=== PATIENT | male | born 1945 | race Caucasian/White ===

== ENCOUNTER 2016-09-23 21:05 | Emergency (ER) | payer MEDICARE, BC ==
[2016-09-23 21:22] VITALS: BP 140/76; PULSE 77; RESP 18; TEMP 97.9
[2016-09-23] MEDS ORDERED: methylPREDNISolone SOD SUCCI 125 MG/2 ML VIAL IM STA (21:43)
[2016-09-23] MEDS ORDERED: diphenhydrAMINE 50 MG CAP PO STA (21:43)
[2016-09-23] MEDS ORDERED: FAMOTIDINE 20 MG TAB PO STA (21:43)
--- NOTE | 2016-09-23 21:47 | ED ---
Eye Problem HPI - General Chief complaint: Eye Problems Stated complaint: Eye Problem Time Seen by Provider: 09/23/16 21:40 Source: patient, RN notes reviewed Mode of arrival: ambulatory Limitations: no limitations - History of Present Illness Initial comments: 71-year-old male presents to the emergency Department chief complaint of localized reaction. Patient states he was fogging his upstairs and he got he missed onto his face and since he's noted some swelling to the face and he's noticed some itchiness. Patient states he called [facility] referred him here for ALLERGIC reaction. Patient states is been no difficulty in breathing. Patient denies any shortness of breath. Patient denies any fever or chills with this. Patient states he was concerned due to the itchiness and redness without that he should be evaluated. Patient is denying any other symptoms at this time. - Related Data Home Medications Medication Instructions Recorded Confirmed Dapsone 25 mg PO DAILY 12/23/14 12/23/14 HYDROcodone/APAP 7.5-325MG [[place] 1 each PO Q6HR PRN 12/23/14 12/23/14 7.5-325] Levothyroxine Sodium [Synthroid] 112 mcg PO DAILY 12/23/14 12/23/14 Nitroglycerin Sl Tabs [Nitrostat] 0 mg SUBLINGUAL DIRECTED PRN 12/23/1412/23 Omeprazole [PriLOSEC] 20 mg PO AC-BRKFST 12/23/14 12/23/14 Zolpidem Tartrate [Ambien] 10 mg PO HS 12/23/14 12/23/14 Previous Rx's Medication Instructions Recorded Famotidine [Pepcid] 20 mg PO BID #10 tablet 09/23/16 diphenhydrAMINE [Benadryl] 50 mg PO HS PRN #5 capsule 09/23/16 predniSONE 50 mg PO DAILY #5 tab 09/23/16 Allergies Allergy/AdvReac Type Severity Reaction Status Date / Time gluten Allergy Unknown Verified 09/23/16 21:23 Review of Systems ROS Statement: Those systems with pertinent positive or pertinent negative responses have been documented in the HPI. ROS Other: All systems not noted in ROS Statement are negative. Past Medical History Past Medical History: Chest Pain / Angina, Thyroid Disorder Additional Past Medical History / Comment(s): Insomnia History of Any Multi-Drug Resistant Organisms: None Reported Past Surgical History: Orthopedic Surgery Past Psychological History: No Psychological Hx Reported Smoking Status: Never smoker Past Alcohol Use History: Occasional Past Drug Use History: None Reported General Exam Limitations: no limitations General appearance: alert, in no apparent distress Head exam: Present: atraumatic, normocephalic. Absent: normal inspection ( Patient is bit of swelling around the eyes to the face to the forehead minimal erythema no hives) Eye exam: Present: PERRL, EOMI. Absent: normal appearance (Some swelling), scleral icterus, conjunctival injection, periorbital swelling ENT exam: Present: normal exam, mucous membranes moist Respiratory exam: Present: normal lung sounds bilaterally. Absent: respiratory distress, wheezes, rales, rhonchi, stridor Cardiovascular Exam: Present: regular rate, normal rhythm, normal heart sounds. Absent: systolic murmur, diastolic murmur, rubs, gallop, clicks Neurological exam: Present: alert, oriented X3 Psychiatric exam: Present: normal affect, normal mood Skin exam: Present: warm, dry, intact, normal color. Absent: rash Course Vital Signs 09/23/16 21:18 Temperature 97.9 F Pulse Rate 77 Respiratory 18 Rate Blood Pressure 140/76 O2 Sat by Pulse 94 L Oximetry Medical Decision Making - Medical Decision Making 71 yo male presents for what appears to be ALLERGIC reaction. This time we'll start patient on steroids for home. We discussed Motrin Tylenol for pain. We discussed continuing the prescription that was prescribed. We discussed return parameters all patient's questions. He stated he understood the plan. This time will be discharged home. Disposition Clinical Impression: Allergic reaction to chemical substance Disposition: HOME SELF-CARE Condition: Stable Instructions: Allergies (ED) Additional Instructions: Please use medication as discussed. Please follow up with family doctor if symptoms have not improved over the next two days. Please return to the emergency room if your symptoms increase or worsen or for any other concerns. Prescriptions: diphenhydrAMINE [Benadryl] 50 mg PO HS PRN #5 capsule PRN Reason: Itching Famotidine [Pepcid] 20 mg PO BID #10 tablet predniSONE 50 mg PO DAILY #5 tab Referrals: Eladio Pagan DO [Primary Care Provider] - 1-2 days Time of Disposition: 22:13
== END 2016-09-23 22:18 | disposition home or self-care (01) ==
LOC: EC 21:05
DX: T78.49XA Other allergy, initial encounter (principal); E07.9 Disorder of thyroid, unspecified; Z79.899 Other long term (current) drug therapy; Z91.018 Allergy to other foods
CPT/HCPCS: 99283; 96372; J2930

== ENCOUNTER 2019-04-13 17:22 | Emergency (ER) | payer MEDICARE, BC ==
[2019-04-13 17:41] VITALS: TEMP 98.1
--- NOTE | 2019-04-13 20:03 | ED ---
General Adult HPI - General Chief complaint: Extremity Injury, Lower Stated complaint: Knee injury Time Seen by Provider: 04/13/19 17:56 Source: patient Mode of arrival: ambulatory Limitations: no limitations - History of Present Illness Initial comments: Patient is a 73-year-old male presenting to the emergency department with a chief complaint of right knee pain. Patient reports about 2 hours prior to ED arrival his dog ran into his right knee head-on. Patient states that he hyperextended his knee and is now complaining of pain with ambulation. Denies any swelling, erythema, ecchymosis or signs of trauma the region. Reports the pain is exacerbated with flexion. Resting alleviates the pain. Patient reports taking naproxen to alleviate some of the symptoms. Denies any numbness and tingling. Denies previous injuries to the knee. - Related Data Home Medications Medication Instructions Recorded Confirmed Dapsone 25 mg PO DAILY 12/23/14 12/23/14 HYDROcodone/APAP 7.5-325MG [[place] 1 each PO Q6HR PRN 12/23/14 12/23/14 7.5-325] Levothyroxine Sodium [Synthroid] 112 mcg PO DAILY 12/23/14 12/23/14 Nitroglycerin Sl Tabs [Nitrostat] 0 mg SUBLINGUAL DIRECTED PRN 12/23/14 12/23/14 Omeprazole [PriLOSEC] 20 mg PO AC-BRKFST 12/23/14 12/23/14 Zolpidem Tartrate [Ambien] 10 mg PO HS 12/23/14 12/23/14 Previous Rx's Medication Instructions Recorded Famotidine [Pepcid] 20 mg PO BID #10 tablet 09/23/16 diphenhydrAMINE [Benadryl] 50 mg PO HS PRN #5 capsule 09/23/16 predniSONE 50 mg PO DAILY #5 tab 09/23/16 Allergies Allergy/AdvReac Type Severity Reaction Status Date / Time gluten Allergy Unknown Verified 04/13/19 17:43 Review of Systems ROS Statement: Those systems with pertinent positive or pertinent negative responses have been documented in the HPI. ROS Other: All systems not noted in ROS Statement are negative. Past Medical History Past Medical History: Chest Pain / Angina, Thyroid Disorder Additional Past Medical History / Comment(s): Insomnia History of Any Multi-Drug Resistant Organisms: None Reported Past Surgical History: Orthopedic Surgery Past Psychological History: No Psychological Hx Reported Smoking Status: Never smoker Past Alcohol Use History: Occasional Past Drug Use History: None Reported General Exam Limitations: no limitations General appearance: alert, in no apparent distress Head exam: Present: atraumatic, normocephalic, normal inspection Eye exam: Present: normal appearance, PERRL, EOMI Pupils: Present: normal accommodation ENT exam: Present: normal exam, mucous membranes moist Neck exam: Present: normal inspection, full ROM Respiratory exam: Present: normal lung sounds bilaterally Cardiovascular Exam: Present: regular rate, normal rhythm, normal heart sounds Extremities exam: Present: normal inspection (Mild developing ecchymosis in the region. Some mild swelling in the suprapatellar region.), tenderness (Tenderness in the infrapatellar and suprapatellar region as well as the popliteal region.), normal capillary refill, joint swelling (Mild right knee.), other (+2 ulnar and radial pulses bilaterally. Negative anterior drawer. Negative Suraj.). Absent: full ROM (Limited range of motion with flexion due to pain), pedal edema Back exam: Present: normal inspection, full ROM Neurological exam: Present: alert, oriented X3 Psychiatric exam: Present: normal affect, normal mood Skin exam: Present: warm, dry, intact, normal color Course Vital Signs 04/13/19 17:38 Temperature 98.1 F Pulse Rate 70 Respiratory 18 Rate Blood Pressure 171/91 O2 Sat by Pulse 98 Oximetry Medical Decision Making - Medical Decision Making Patient is a 73-year-old male presenting to the emergency department with a chief complaint of right knee pain. On exam patient is gradually developing some ecchymosis along the anterior aspect of the right knee along with mild swelling in the suprapatellar region. He is tender in the popliteal region along with the patellar area as well. No numbness and tingling. Patient is neurovascularly intact. X-ray showed no signs of acute fracture or dislocations . Patient already has crutches. Peña wrap applied. Patient advised to alternate between Tylenol and ibuprofen. Patient advised to elevate foot above heart level to alleviate symptoms. He was also advised to apply ice compress to minimize symptoms. Patient advised to follow-up with supervisory investigative specialist. Strict return parameters were thoroughly discussed the patient was understanding and agreeable. Case discussed with physician. Disposition Clinical Impression: Right knee injury, Pain and swelling of right knee Disposition: HOME SELF-CARE Condition: Stable Instructions (If sedation given, give patient instructions): Swollen Knee Joint (ED) Additional Instructions: Please follow up with an supervisory investigative specialist. Alternate between Tylenol and ibuprofen for pain control. Keep foot elevated above heart level and apply ice compress to minimize symptoms. Please return to emergency department if symptoms worsen. Is patient prescribed a controlled substance at d/c from ED?: No Referrals: [facility],Clinic [Primary Care Provider] - 1-2 days Time of Disposition: 20:03
[2019-04-13 20:35] VITALS: BP 133/79; PULSE 62; RESP 16
--- NOTE | 2019-04-13 22:01 | XR ---
EXAMINATION TYPE: XR knee complete RT DATE OF EXAM: 04/13/2019 COMPARISON: None HISTORY: Trauma, pain TECHNIQUE: Three-view right knee FINDINGS: There is a subtle fracture at the lateral aspect medial tibial plateau. Small joint effusio n is present. Joint spaces are preserved. IMPRESSION: 1. Subtle fracture at the lateral aspect medial tibial plateau. CT of the right knee could be perfor med for confirmation.
== END 2019-04-13 20:43 | disposition home or self-care (01) ==
LOC: EC 17:22 → SUPCPDRO 17:22 → EC 20:43
DX: S80.01XA Contusion of right knee, initial encounter (principal); E07.9 Disorder of thyroid, unspecified; G47.00 Insomnia, unspecified; Z91.018 Allergy to other foods; Z79.890 Hormone replacement therapy; Z79.899 Other long term (current) drug therapy; W54.1XXA Struck by dog, initial encounter; Y92.009 Unspecified place in unspecified non-institutional (private) residence as the place of occurrence of the external cause
CPT/HCPCS: 99283

== ENCOUNTER → 2019-04-26 | Outpatient (CLI) | payer MEDICARE, BC ==
--- NOTE | 2019-04-27 08:22 | CT ---
EXAMINATION TYPE: CT knee RT wo con DATE OF EXAM: 04/26/2019 COMPARISON: None HISTORY: right knee pain following fall CT DLP: 332 mGycm Automated exposure control for dose reduction was used. Unenhanced CT of the right knee was performed with bone and soft tissue window settings submitted. Images are reviewed in the axial coronal and sa gittal plane. 3-D reconstruction was performed at a separate workstation. FINDINGS: There is minimally depressed fracture involving the medial tibial plateau with a component noted just adjacent to the medial intercondylar spine and an additional component seen within the midportion of the tibial plateau. Fracture depression is estimated at 1 mm. No significant displacement is identif ied. No additional fractures are seen with certainty at this time. No evidence for a joint effusion. Mild degenerative narrowing medial tibiofemoral joint space. Mild patellar spur formation noted. No e vidence for soft tissue mass. IMPRESSION: There is minimally depressed fracture involving the medial tibial plateau with a component noted just adjacent to the medial intercondylar spine and an additional component seen within the midportion of the tibial plateau.
== END | disposition home or self-care (01) ==
LOC: RADCTMAIN 16:32
PROVIDERS: ATTEND Orthopaedic Surgery
DX: S82.141A Displaced bicondylar fracture of right tibia, initial encounter for closed fracture (principal)

== ENCOUNTER → 2019-05-01 | Outpatient (CLI) | payer MEDICARE, BC ==
--- NOTE | 2019-05-01 11:55 | US ---
EXAMINATION TYPE: US venous doppler duplex LE RT DATE OF EXAM: 05/01/2019 11:39 AM COMPARISON: NONE CLINICAL HISTORY: I80.0 Phlebitis and thrombophlebitis of unspecifie. SIDE PERFORMED: Right TECHNIQUE: The lower extremity deep venous system is examined utilizing real time linear array sonog ewelina with graded compression, doppler sonography and color-flow sonography. VESSELS IMAGED: External Iliac Vein (EIV) Common Femoral Vein Deep Femoral Vein Greater Saphenous Vein * Femoral Vein Popliteal Vein Small Saphenous Vein * Proximal Calf Veins (* superficial vessels) Grayscale, color doppler, spectral doppler imaging performed of the deep veins of the right lower ext remity. There is normal flow, compressibility, vascular waveforms. Right Leg: Negative for DVT GSV and posterior tib veins also scanned per order Results phoned to [facility] immediately following exam. IMPRESSION: No sonographic evidence of deep venous thrombosis within the right lower extremity.
== END | disposition home or self-care (01) ==
LOC: RADUSWWP 11:05
PROVIDERS: ATTEND Orthopaedic Surgery
DX: M25.561 Pain in right knee (principal); E03.9 Hypothyroidism, unspecified; S82.101D Unspecified fracture of upper end of right tibia, subsequent encounter for closed fracture with routine healing; H91.90 Unspecified hearing loss, unspecified ear; I80.9 Phlebitis and thrombophlebitis of unspecified site

== ENCOUNTER → 2020-12-11 | Outpatient (CLI) | payer MEDICARE, BC ==
--- NOTE | 2020-12-12 07:45 | MR ---
EXAMINATION TYPE: MR lumbar spine wo/w con DATE OF EXAM: 12/11/2020 COMPARISON: Lumbar spine x-ray March 22, 2015 HISTORY: Low back pain down both legs, cold feet, and lost feeling in feet for years TECHNIQUE: Multiplanar, multisequence images of the lumbar spine is performed without and with IV contrast, util izing 10 mL intravenous Gadavist FINDINGS: Sagittal images of the lumbar spine show vertebral body heights to remain satisfactory. Pro minent Schmorl node in the posterior right superior L5 endplate is noted. Stable slight grade 1 retro listhesis L3 on L4. Multilevel disc desiccation is present. There is mild to moderate disc space narr owing at L3-L4 and L4-L5 level on current study. The conus medullaris is normal in position and sign al ending mid L1 level. Cmyc-ax-shzzylbf multilevel anterior spurring. Symmetric changes Modic type II endplate changes at L3-L4 level noted. Few scattered small hemangiomas are present. No abnormal po stcontrast enhancement. Axial images show T12-L1 and L1-L2 levels to appear within normal limits. Axial images at L2-L3 level show rnvj-sa-dbneguqq broad disc bulge effacing the anterior thecal sac. Patent bilateral neural foramina. Axial images at L3-L4 levels with spondylolisthesis with moderate to advanced broad disc bulge effaci ng anterior thecal sac. There is mild facet arthropathy effacing the posterolateral thecal sac. There is liki-gg-cbdgceik bilaterally into inferior neural foraminal narrowing. Axial images at L4-L5 level mild/moderate facet arthropathy and ligamentum flavum hypertrophy. There is moderate broad disc bulge effacing the anterior thecal sac. There is moderate right and mild left- sided neural foraminal narrowing on sagittal images. Axial images at L5-S1 level show moderate to advanced facet arthropathy bilaterally. There is broad-b ased posterior disc protrusion with tiny central disc protrusion component with spinal canal is maint ained. There is asymmetric moderate right-sided neural foraminal narrowing. Left-sided neural foramin a is patent. Partial visualization of diverticula in the sigmoid colon upper pelvis. There is exophytic thin-ketty d cyst posteriorly from right kidney partially imaged measuring at least 4.2 cm in size. IMPRESSION: Multilevel degenerative changes in the lumbar spine as detailed above with findings great est at the L3-L4 level.
== END | disposition home or self-care (01) ==
LOC: RADMRIMAIN 14:48
PROVIDERS: ATTEND Family Medicine
DX: M47.816 Spondylosis without myelopathy or radiculopathy, lumbar region (principal); M51.27 Other intervertebral disc displacement, lumbosacral region; M99.73 Connective tissue and disc stenosis of intervertebral foramina of lumbar region
CPT/HCPCS: 72158; A9585

== ENCOUNTER → 2023-08-09 | Outpatient (CLI) | payer MEDICARE, BC ==
--- NOTE | 2023-08-09 20:36 | MR ---
EXAMINATION TYPE: MR brain and iac wo/w con DATE OF EXAM: 08/09/2023 COMPARISON: None HISTORY: Bilateral hearing loss, tinnitus, dripping sound in right ear. TECHNIQUE: Multiplanar, multisequence images of the brain and brainstem is performed without and with IV contras t, utilizing 10 mL intravenous Gadavist . Findings: On the T1-weighted sagittal images, the midline structures including the craniovertebral junction rel ationships appear normal. The ventricles, basal cisterns and sulci over the convexities are within normal limits and there is n o mass effect or shift of midline structures Is wjdz-ld-mnyleefs multifocal areas of abnormal increased signal intensity in the white matter of al th cerebral hemispheres which are nonspecific findings and most likely reflect chronic ischemic white matter change. Based on diffusion-weighted imaging, there is no diffusion restriction or acute ischemic event. Following contrast administration, there is no pathological enhancement. The posterior fossa including the brainstem, fourth ventricle and cerebellar pontine angles appear no rmal. The internal auditory canal and contents are normal and symmetric without mass or pathological enhancement. Intraorbital contents are normal and symmetric. Visualized paranasal sinuses and mastoid air cells ar e well aerated. IMPRESSION: 1. Moderate multifocal chronic nonspecific white matter changes. 2. No acute ischemic event. 3. No abnormality of the internal auditory canals or cerebellopontine angles. 4. No pathological enhancement throughout the brain parenchyma. 5. No fluid within the mastoid air cells.
== END | disposition home or self-care (01) ==
LOC: RADMRIMAIN 17:08
PROVIDERS: ATTEND Otolaryngology
DX: G93.89 Other specified disorders of brain (principal); H90.3 Sensorineural hearing loss, bilateral; H93.11 Tinnitus, right ear
CPT/HCPCS: 70553; A9585

== ENCOUNTER 2023-08-25 10:40 | Day surgery (SDC) | payer MEDICARE, BC ==
[~2023-08-25 10:40] MED LIST: HYDROmorphone 0.5 MG/0.5 ML SYRINGE IVP PRN; LIDOCAINE 1% (10MG/ML) FOR IV START INTRADERMA PRN; droPERidol 5 MG/2 ML VIAL IVP ONE
[2023-08-25] MEDS: OXYMETAZOLINE 0.05% NASL SPRAY 1 SPRAY BOTTLE EA NOSTRIL PRN (11:10)
[2023-08-25] MEDS: LACTATED RINGERS 1,000 ML IV SCH (11:10)
[2023-08-25] MEDS: ONDANSETRON 4 MG/2 ML VIAL IVP ONE (11:28)
[2023-08-25] MEDS: DEXAMETHASONE SOD PHOSPHATE 4 MG/ML 1 ML VIAL IV ONE (11:28)
[2023-08-25] MEDS: FAMOTIDINE 20 MG/2 ML VIAL IV PRN (11:28)
[2023-08-25] MEDS ORDERED: SUCCINYLCHOLINE CHLORIDE 200 MG/10 ML VIAL IV ONE (12:01)
[2023-08-25] MEDS ORDERED: MIDAZOLAM 2 MG/2 ML VIAL ONE (12:01)
[2023-08-25] MEDS ORDERED: ROCURONIUM 10 MG/ML (5 ML VIAL) IV ONE (12:01)
[2023-08-25] MEDS ORDERED: LIDOCAINE 1% INJ 10MG/ML (20 ML MDV) ONE (12:01)
[2023-08-25] MEDS ORDERED: NEOSTIGMINE 1 MG/ML 10 ML VIAL ONE (12:01)
[2023-08-25] MEDS ORDERED: ePHEDrine 50 MG/ML 1 ML VIAL ONE (12:01)
[2023-08-25] MEDS ORDERED: fentaNYL (PF) 50 MCG/ML 2 ML AMP ONE (12:01)
[2023-08-25] MEDS ORDERED: PHENYLEPHRINE-0.9% NACL SYG 1,000 MCG/10 ML SYRINGE ONE (12:01)
[2023-08-25] MEDS ORDERED: GLYCOPYRROLATE 0.2 MG/ML 2 ML VIAL ONE (12:01)
[2023-08-25] MEDS ORDERED: PROPOFOL 10 MG/ML 20 ML VIAL IV ONE (12:01)
[2023-08-25] MEDS: LIDOCAINE 1%-EPI 1:100,000 20 ML VIAL SUBMUCOSAL ONE ×2 (12:22)
[2023-08-25] MEDS: BACITRACIN ZINC 500 UNIT/GM OINT 28.4 GM TUBE TOPICAL ONE (12:26)
--- NOTE | 2023-08-25 12:57 | P.OP ---
Date of Procedure: 08/25/23 Preoperative Diagnosis: deviated nasal septum Inferior turbinate hypertrophy Postoperative Diagnosis: same Procedure(s) Performed: septoplasty Outfracture and submucous resection inferior turbinates Anesthesia: PABLOA Surgeon: Shaq Virk Estimated Blood Loss (ml): 5 Pathology: other (nasal septal bone and cartilage) Condition: stable Disposition: PACU Indications for Procedure: this 78-year-old white male whose had difficulties with chronic nasal airway obstruction bilaterally although left greater than right for many years this does not improve with steroid nasal sprays Operative Findings: nasal septum deviated to the left anteriorly obstructing approximately 80% of the , Nasal Airway and to the Right Posteriorly Obstructing Approximate 70% of the Nasal Airway, inferior turbinate hypertrophy moderate bilateral Description of Procedure: DESCRIPTION OF PROCEDURE: The patient was brought to the operative suite, placed in the supine position. The patient underwent induction of general anesthesia with oral endotracheal intubation without difficulty. The patient was prepped and draped in the usual aseptic fashion. 1% lidocaine with 1:100,000 epinephrine was infused submucosally on both sides of the nasal septum. While this was taking vasoconstrictive effect, the inferior turbinates were infractured with a Austin elevator. Partial submucous resection of the inferior turbinates was performed with Coblation device ablating a portion of the submucosal soft tissue. The inferior turbinates were then outfractured with a Austin elevator. A left hemitransfixion incision was then made through the mucoperichondrial. Mucoperiosteal flap on the left elevated. Bony cartilaginous junction was disarticulated and mucoperiosteal flap on the right was elevated. Bony nasoseptal deformity were removed with Rachel forceps and an inferior cartilaginous strip was removed, leaving a full 1.5 cm caudal strut. Checking intranasally, this corrected the nasal septal deformities and the hemitransfixion incision was closed with running 4-0 chromic suture. The bilateral Klein airway splints coated in bacitracin ointment were placed in the nasal cavities and sutured transseptally with 4-0 nylon suture. The patient was then suctioned in an orogastric fashion. The patient was allowed to emerge from general anesthesia, having tolerated the procedure well and was extubated in the operating suite, transferred to postoperative recovery area in satisfactory condition.
[2023-08-25] MEDS ORDERED: LIDOCAINE 4% (PF) 5 ML AMP IH STA (13:24)
[2023-08-25 13:35] VITALS: TEMP 97.9
[2023-08-25 15:32] VITALS: BP 132/72; PULSE 78
[2023-08-25 15:33] VITALS: RESP 18
== END 2023-08-25 15:46 | disposition home or self-care (01) ==
LOC: OR 10:40
PROVIDERS: ATTEND Otolaryngology
DX: J34.2 Deviated nasal septum (principal); J34.3 Hypertrophy of nasal turbinates; I48.91 Unspecified atrial fibrillation; G47.33 Obstructive sleep apnea (adult) (pediatric); E07.9 Disorder of thyroid, unspecified; N40.0 Benign prostatic hyperplasia without lower urinary tract symptoms; K21.9 Gastro-esophageal reflux disease without esophagitis; Z79.01 Long term (current) use of anticoagulants; Z79.890 Hormone replacement therapy; Z85.850 Personal history of malignant neoplasm of thyroid; Z79.899 Other long term (current) drug therapy
CPT/HCPCS: 30520; 30802; 88300; J2250; J0330; J1100; J2710; J0690; J2405; J2001; J3010; J3490; J2704; J2371

== ENCOUNTER 2023-08-27 08:53 | Inpatient (IN) | payer MEDICARE, BC ==
[2023-08-27] MEDS: SODIUM CHLORIDE 0.9% 1,000 ML IV STA (10:44)
[2023-08-27 10:50] LABS: Basophils % (A) 0 %; Eosinophils # (A) 0.2 k/uL (0-0.7); Eosinophils % (A) 2 %; HGB 11.2 gm/dL (13.0-17.5); Lymphocytes # (A) 0.8 k/uL (1.0-4.8); Lymphocytes % (A) 7 %; MCH 29.1 pg (25.0-35.0); MCV 91.1 fL (80.0-100.0); Mean Platelet Volume 8.8; Monocytes # (A) 0.5 k/uL (0-1.0); Monocytes % (A) 4 %; Neutrophils # (A) 9.2 k/uL (1.3-7.7); Neutrophils % (A) 85 %; Platelet Count 243 k/uL (150-450); RBC 3.84 m/uL (4.30-5.90); RDW 15.2 % (11.5-15.5); WBC 10.8 k/uL (3.8-10.6)
[2023-08-27 11:08] LABS: Appearance,Urine Clear (Clear); Bilirubin,Urine Negative (Negative); Blood,Urine Negative (Negative); Color,Urine Colorless; Glucose,Urine (UA) Negative (Negative); Ketones,Urine Negative (Negative); Leukocyte Esterase,Urine Negative (Negative); Nitrite,Urine Negative (Negative); PH, Urine 6.5 (5.0-8.0); Protein,Urine Negative (Negative); Specific Gravity,Urine 1.008 (1.001-1.035); Urobilinogen,Urine <2.0 mg/dL (<2.0)
[2023-08-27] MEDS: IPRATROPIUM-ALBUTEROL 3 ML NEB INHALATION STA (11:10)
--- NOTE | 2023-08-27 11:15 | XR ---
EXAMINATION TYPE: XR chest 1V portable DATE OF EXAM: 08/27/2023 9:51 AM CLINICAL INDICATION:Male, 78 years old with history of dyspnea; [facility] COMPARISON: Chest radiographs from 12/23/2014 TECHNIQUE: XR chest 1V portable Frontal view of the chest. FINDINGS: Lungs/Pleura: There is flattening of the diaphragm with increased lucency of the lungs. No evidence o f pneumothorax, pleural effusion or focal consolidation. Pulmonary vascularity: Unremarkable. Heart/mediastinum: Cardiomediastinal silhouette is unremarkable. Musculoskeletal: No acute osseous pathology. IMPRESSION: 1. No acute cardiopulmonary disease process. 2. COPD changes.
--- NOTE | 2023-08-27 11:26 | CT ---
EXAMINATION TYPE: CT chest angio for PE CT DLP: 562.7 mGycm, Automated exposure control for dose reduction was used. DATE OF EXAM: 08/27/2023 10:50 AM COMPARISON: None CLINICAL INDICATION:Male, 78 years old with history of recent surgery, hypoxic, eval for PE; stents p laced yesterday for deviated septum, trouble breathing today. TECHNIQUE/CONTRAST: CTA scan of the thorax is performed with IV Contrast, patient injected with 100ml mL of Isovue 370, M IP images are created and reviewed these are created on a separate workstation.. FINDINGS: Pulmonary Artery: There is no evidence for a filling defect within the pulmonary vasculature to sugge st acute pulmonary embolism. The pulmonary artery is of normal size. Lungs/Pleura: No evidence of focal consolidation, pleural effusion or pneumothorax. Centrilobular emp hysema changes with groundglass appearance throughout the lungs Airway: Large airways are patent. Heart: Heart is within normal limits for size. Vasculature: No evidence of aortic aneurysm. Mediastinum: No gross evidence of adenopathy. Musculoskeletal: No acute osseous abnormalities Soft Tissues/lymph nodes: Unremarkable. Lower neck: No significant findings. Upper Abdomen: Right renal cyst. IMPRESSION: 1. No evidence of pulmonary embolism. 2. Emphysema with diffuse increased attenuation of the lungs possibly representing superimposed edema . Attention on short-term follow-up. Follow up recommendations for incidental pulmonary nodules, if there are any, are per Bhavik?regi Rios [employer] or [employer]. [email or web address]?lang=us
--- NOTE | 2023-08-27 11:28 | CT ---
EXAMINATION TYPE: CT facial bones w con CT DLP: 580.7 mGycm, Automated exposure control for dose reduction was used. DATE OF EXAM: 08/27/2023 11:25 AM COMPARISON: None. CLINICAL INDICATION:Male, 78 years old with history of recent nasal procedure, packing in place.; [facility] , stents placed yesterday for deviated septum, trouble breathing today. TECHNIQUE: Multiple unenhanced axial CT images were obtained of the facial bones soft tissue and bone windows. Coronal, axial and sagittal reformatted images were also provided in soft tissue and bone windows and submitted for interpretation. Contrast used:100ml mL of Isovue 370 with IV Contrast, (none if empty) Oral contrast used: (none if empty) FINDINGS: Intracranial portions appear within normal limits. There is atherosclerosis of the carotid arteries i ntracranial portions. Bilaterally aphakia. There is leftward deviated nose. Nasal septum is thickened with 2 stents placed. The stents appear patent. Mild paranasal sinus disease most proximal ethmoid a ir cells and superior portion. Multilevel degeneration changes of the spine. No evidence of fracture. IMPRESSION: Bilateral nasal stents placed which are patent. Mild paranasal sinus disease most pronounced in the e thmoid air cells on the right.
[2023-08-27 11:45] LABS: INR 1.1 (<1.2); Partial Thromboplastin Time 28.1 sec (22.0-30.0); Prothrombin Time 11.5 sec (10.0-12.5)
[2023-08-27 12:09] LABS: VBG PH 7.33 (7.31-7.41)
[2023-08-27] MEDS ORDERED: ONDANSETRON 4 MG/2 ML VIAL IVP PRN (12:27)
[2023-08-27] MEDS ORDERED: NALOXONE 0.4 MG/ML 1 ML VIAL IV PRN (12:27)
--- NOTE | 2023-08-27 12:30 | ED ---
General Adult HPI - General Chief complaint: Shortness of Breath Stated complaint: GEOVANNY Time Seen by Provider: 08/27/23 09:38 Source: patient, RN notes reviewed, old records reviewed Mode of arrival: ambulatory Limitations: no limitations - History of Present Illness Initial comments: Patient is a 78-year-old male who presents emergency department complaining of hypoxia and increased shortness of breath. Has a history of A-fib on Xarelto but this is currently being held, hypertension, GERD. Recently nasal septum surgery with Dr. Virk and was at his office today to have nasal stents removed however patient was having increased work of breathing as well as hypoxia and was sent here for further evaluation. Is currently not taking his blood thinning medication Xarelto. Denies any lower extremity edema. Denies chest pain or abdominal pain. Patient states that while the shortness of breath was bad today it has been more of a progressive issue ongoing for weeks to at least months. Has noticed somewhat over the last few years that it may be present as well but is noticing significant worsening over the last few weeks. Denies any significant cough or congestion. No tobacco use history or known exposures but does endorse chronic secondhand smoke exposure. Presents for further evaluation at this time. Due to recent surgery is having hard time breathing out of his nose due to discomfort. He was saturating well on room air and was placed on 6 L nasal cannula and placed in room 8 where I evaluated the patient. - Related Data Home Medications Medication Instructions Recorded Confirmed Dapsone 25 mg PO BID 12/23/14 08/27/23 Omeprazole [PriLOSEC] 20 mg PO BID 12/23/14 08/27/23 Zolpidem Tartrate [Ambien] 10 mg PO HS 12/23/14 08/27/23 Fexofenadine HCl 180 mg PO HS 08/20/23 08/27/23 Ipratropium-Albuterol Nebulize 3 ml INHALATION RT-BID 08/20/23 08/27/23 [Duoneb 0.5 mg-3 mg/3 ml Soln] Losartan [Cozaar] 25 mg PO DAILY 08/20/23 08/27/23 Metoprolol Succinate [Metoprolol 25 mg PO BID 08/20/23 08/27/23 Succinate ER] Rivaroxaban [Xarelto] 20 mg PO DAILY 08/20/23 08/27/23 Tamsulosin [Flomax] 0.4 mg PO HS 08/20/23 08/27/23 methocarbamoL 750 mg PO QID PRN 08/20/23 08/27/23 traMADol HCL 50 mg PO DAILY PRN 08/20/23 08/27/23 Azelastine HCl [Astelin Nasal 1 spr EA NOSTRIL DAILY 08/27/23 08/27/23 [place]] Carboxymethylcellulose Sodium 1 drop BOTH EYES BID 08/27/23 08/27/23 [Refresh Tears] Cephalexin [Keflex] 500 mg PO QID 08/27/23 08/27/23 Levothyroxine Sodium [Synthroid] 137 mcg PO DAILY 08/27/23 08/27/23 Allergies Allergy/AdvReac Type Severity Reaction Status Date / Time gluten Allergy Unknown Verified 08/27/23 12:12 Review of Systems ROS Statement: Those systems with pertinent positive or pertinent negative responses have been documented in the HPI. Review of Systems: CONST: Denies fever EYES: Denies blurry vision ENT: Denies nasal congestion C/V: Denies Chest pain RESP: Endorses shortness of breath GI: Denies abdominal pain : Denies dysuria SKIN: Denies rash. MSK: Denies joint pain. NEURO: Denies headache ROS Other: All systems not noted in ROS Statement are negative. Past Medical History Past Medical History: Atrial Fibrillation, Cancer, Chest Pain / Angina, GERD/Reflux, Hypertension, Osteoarthritis (OA), Prostate Disorder, Sleep Apnea/CPAP/BIPAP, Thyroid Disorder Additional Past Medical History / Comment(s): Insomnia, deviated septum - trouble breathing , Uses cpap. allergies. dry mouth, hx basal cell behind ear. hx of thyroid cancer. BPH. back and neck pain. History of Any Multi-Drug Resistant Organisms: None Reported Past Surgical History: Orthopedic Surgery Additional Past Surgical History / Comment(s): cardioversion 08/23, removal of basal cell cancer, thyroidectomy, ankle surgery. colonoscopy, cataracts, Nasal surgery Past Anesthesia/Blood Transfusion Reactions: No Reported Reaction Past Psychological History: No Psychological Hx Reported Smoking Status: Never smoker Past Alcohol Use History: None Reported Past Drug Use History: None Reported - Past Family History Father Family Medical History: Coronary Artery Disease (CAD) Mother Family Medical History: COPD General Exam - General Exam Comments Initial Comments: General: Appears in mild respiratory distress. HEAD: Normal with no signs of head trauma. EYES: PERRLA, EOMI, conjunctiva normal, no discharge. ENT: Hearing grossly intact, normal oropharynx. RESPIRATORY: Mild wheezing and somewhat coarse breath sounds bilaterally. Hypoxic in the ED presents on room air. Improved on 6 L nasal cannula to low 90 presents. C/V: Regular rate and rhythm. S1 and S2 auscultated, no edema, peripheral pulses 2+ and intact throughout ABD: Abd is soft, nontender, nondistended EXT: Normal range of motion, no obvious deformity SKIN: No rashes or lesions observed on exposed skin. NEURO: Alert and oriented x 4. Limitations: no limitations Course Vital Signs 08/27/23 08/27/23 08/27/23 09:14 10:46 11:10 Temperature 98.2 F Pulse Rate 84 83 73 Respiratory 26 H 20 Rate Blood Pressure 135/67 170/85 O2 Sat by Pulse 84 L 89 L Oximetry 08/27/23 08/27/23 08/27/23 12:42 12:53 13:30 Temperature Pulse Rate 74 76 94 Respiratory 20 Rate Blood Pressure 144/69 O2 Sat by Pulse 92 L 93 L Oximetry Medical Decision Making - Medical Decision Making Was pt. sent in by a medical professional or institution (, PA, SCRUM PROJECT MANAGER, urgent care, hospital, or fpc...) When possible be specific @ -Sent from Dr. Virk's office for evaluation. Did you speak to anyone other than the patient for history (EMS, parent, family, police, friend...)? What history was obtained from this source @ -No Did you review nursing and triage notes (agree or disagree)? Why? @ -I reviewed and agree with nursing and triage notes Were old charts reviewed (outside hosp., previous admission, EMS record, old EKG, old radiological studies, urgent care reports/EKG's, fpc records)? Report findings @ -No old charts were reviewed Differential Diagnosis (chest pain, altered mental status, abdominal pain women, abdominal pain men, vaginal bleeding, weakness, fever, dyspnea, syncope, headache, dizziness, GI bleed, back pain, seizure, CVA, palpatations, mental health, musculoskeletal)? @ -Differential Dyspnea: Coronary syndrome, arrhythmia, tamponade, asthma, COPD, pulmonary embolism, pne umonia, pneumothorax, pulmonary effusion, anaphylaxis, diabetic ketoacidosis, flailed chest, pulmonary contusion, diaphragmatic rupture, anemia, neuromuscular, this is not meant to be an all-inclusive list. EKG interpreted by me (3pts min.). @ -As above X-rays interpreted by me (1pt min.). @ -Portable bedside chest x-ray reveals no obvious acute process. Possible COPD changes. CT interpreted by me (1pt min.). @ -CT of the face reveals the intact stents with no complications from recent surgery. Bilateral sinus disease. Chest CTA to evaluate for PE negative for pulmonary embolism but there is findings suggestive of possible ILD or emphysema. U/S interpreted by me (1pt. min.). @ -None done What testing was considered but not performed or refused? (CT, X-rays, U/S, labs)? Why? @ -None What meds were considered but not given or refused? Why? @ -None Did you discuss the management of the patient with other professionals (professionals i.e. , PA, SCR[employer] PROJECT MANAGER, lab, RT, psych nurse, manager social work, room server, teacher, property utilization officer, case mgr)? Give summary @ -Discussed with Dr. Roman who agreed to evaluate the patient at bedside. He is concerned for possible ILD after reviewing imaging and labs. He did add on additional laboratory studies at this time. Otherwise he was in agreement with plan for treatment with IV steroids, breathing treatments. Patient will be admitted. Echo ordered. I spoke with the admitting physician, Dr. Gr who accepted the admission. Was smoking cessation discussed for >3mins.? @ -No Was critical care preformed (if so, how long)? @ -Yes, 34 minutes. Were there social determinants of health that impacted care today? How? (Homelessness, low income, unemployed, alcoholism, drug addiction, transportation, low edu. Level, literacy, decrease access to med. care, retirement, rehab)? @ -No Was there de-escalation of care discussed even if they declined (Discuss DNR or withdrawal of care, Hospice)? DNR status @ -No What co-morbidities impacted this encounter? (DM, HTN, Smoking, COPD, CAD, Cancer, CVA, ARF, Chemo, Hep., AIDS, mental health diagnosis, sleep apnea, morbid obesity)? @ -None Was patient admitted / discharged? Hospital course, mention meds given and route, prescriptions, significant lab abnormalities, going to OR and other pertinent info. @ -Patient presents with dyspnea of unknown etiology. Recently had a surgical procedure and has been holding his anticoagulation. Cannot rule out CT PE as he is having hypoxic respiratory failure requiring supplemental oxygenation. However symptoms seem to be more of a subacute to chronic rather than acute. We will obtain dyspnea workup. Patient in agreement this plan. CT PE will be obtained as well. Vital signs within acceptable limits. He will be given a breathing treatment as well as started on IV steroids due to slight wheezing and coarse breath sounds. Vital signs after patient initiated on the oxygen seems to have normalized with oxygenation at 92% or so on 6 L nasal cannula. Work of breathing improved as well. CT PE reveals possible ILD but no evidence of PE. Chest x-ray shows emphysematous changes. Laboratory studies are relatively unremarkable. Slight hypomagnesemia which was replenished. Viral swabs negative. BNP within normal limits. I discussed the results with the patient. I did consult Dr. Early a pulmonology who was in the emergency department already and evaluate the patient and imaging. Was in agreement this could be ILD. He did add on labs and was in agreement with plan for management with IV steroids, breathing treatments, as well as admission to stepdown. He will continue to follow along as a physician practice consultant. Patient was updated and he was also in agreement this plan. I consulted Dr. Virk as well due to his recent surgery as well as possible removal of his nasal stents. Poke with the admitting physician, Dr. Gr who accepted the admission. Undiagnosed new problem with uncertain prognosis? @ -No Drug Therapy requiring intensive monitoring for toxicity (Heparin, Nitro, Insulin, Cardizem)? @ -No Were any procedures done? @ -No Diagnosis/symptom? @ -Dyspnea of unknown etiology with concern for ILD, hypoxic respiratory failure, hypomagnesemia Acute, or Chronic, or Acute on Chronic? @ -Acute Uncomplicated (without systemic symptoms) or Complicated (systemic symptoms)? @ -Complicated Side effects of treatment? @ -No Exacerbation, Progression, or Severe Exacerbation? @ -No Poses a threat to life or bodily function? How? (Chest pain, [place], [place], pneumonia, PE, COPD, DKA, ARF, appy, cholecystitis, CVA, Diverticulitis, Homicidal, Suicidal, threat to staff... and all critical care pts) @ -Yes - Lab Data Result diagrams: 08/27/23 10:10 08/27/23 11:36 Lab Results 08/27/23 08/27/23 08/27/23 Range/Units 10:10 10:10 10:10 WBC 10.8 H (3.8-10.6) k/uL RBC 3.84 L (4.30-5.90) m/uL Hgb 11.2 L (13.0-17.5) gm/dL Hct 35.0 L (39.0-53.0) % MCV 91.1 (80.0-100.0) fL MCH 29.1 (25.0-35.0) pg MCHC 32.0 (31.0-37.0) g/dL RDW 15.2 (11.5-15.5) % Plt Count 243 (150-450) k/uL MPV 8.8 Neutrophils % 85 % Lymphocytes % 7 % Monocytes % 4 % Eosinophils % 2 % Basophils % 0 % Neutrophils # 9.2 H (1.3-7.7) k/uL Lymphocytes # 0.8 L (1.0-4.8) k/uL Monocytes # 0.5 (0-1.0) k/uL Eosinophils # 0.2 (0-0.7) k/uL Basophils # 0.0 (0-0.2) k/uL PT (10.0-12.5) sec INR (<1.2) APTT (22.0-30.0) sec VBG pH (7.31-7.41) VBG pCO2 (37-51) mmHg VBG HCO3 (24-28) mmol/L Sodium (137-145) mmol/L Potassium (3.5-5.1) mmol/L Chloride (98-107) mmol/L Carbon Dioxide (22-30) mmol/L Anion Gap mmol/L BUN (9-20) mg/dL Creatinine (0.66-1.25) mg/dL Est GFR (CKD-EPI)AfAm (>60 ml/min/1.73 sqM) Est GFR (CKD-EPI)NonAf (>60 ml/min/1.73 sqM) Glucose (74-99) mg/dL Plasma Lactic Acid García 1.1 (0.7-2.0) mmol/L Calcium (8.4-10.2) mg/dL Magnesium (1.6-2.3) mg/dL Total Bilirubin (0.2-1.3) mg/dL AST (17-59) U/L ALT (4-49) U/L Alkaline Phosphatase (38-126) U/L NT-Pro-B Natriuret Pep pg/mL Total Protein (6.3-8.2) g/dL Albumin (3.5-5.0) g/dL Urine Color Colorless Urine Appearance Clear (Clear) Urine pH 6.5 (5.0-8.0) Ur Specific [place] 1.008 (1.001-1.035) Urine Protein Negative (Negative) Urine Glucose (UA) Negative (Negative) Urine Ketones Negative (Negative) Urine Blood Negative (Negative) Urine Nitrite Negative (Negative) Urine Bilirubin Negative (Negative) Urine Urobilinogen <2.0 (<2.0) mg/dL Ur Leukocyte Esterase Negative (Negative) Influenza Type A (PCR) (Not Detectd) Influenza Type B (PCR) (Not Detectd) RSV (PCR) (Not Detectd) SARS-CoV-2 (PCR) (Not Detectd) 08/27/23 08/27/23 08/27/23 Range/Units 10:10 11:01 11:36 WBC (3.8-10.6) k/uL RBC (4.30-5.90) m/uL Hgb (13.0-17.5) gm/dL Hct (39.0-53.0) % MCV (80.0-100.0) fL MCH (25.0-35.0) pg MCHC (31.0-37.0) g/dL RDW (11.5-15.5) % Plt Count (150-450) k/uL MPV Neutrophils % % Lymphocytes % % Monocytes % % Eosinophils % % Basophils % % Neutrophils # (1.3-7.7) k/uL Lymphocytes # (1.0-4.8) k/uL Monocytes # (0-1.0) k/uL Eosinophils # (0-0.7) k/uL Basophils # (0-0.2) k/uL PT 11.5 (10.0-12.5) sec INR 1.1 (<1.2) APTT 28.1 (22.0-30.0) sec VBG pH 7.33 (7.31-7.41) VBG pCO2 48 (37-51) mmHg VBG HCO3 25 (24-28) mmol/L Sodium (137-145) mmol/L Potassium (3.5-5.1) mmol/L Chloride (98-107) mmol/L Carbon Dioxide (22-30) mmol/L Anion Gap mmol/L BUN (9-20) mg/dL Creatinine (0.66-1.25) mg/dL Est GFR (CKD-EPI)AfAm (>60 ml/min/1.73 sqM) Est GFR (CKD-EPI)NonAf (>60 ml/min/1.73 sqM) Glucose (74-99) mg/dL Plasma Lactic Acid García (0.7-2.0) mmol/L Calcium (8.4-10.2) mg/dL Magnesium (1.6-2.3) mg/dL Total Bilirubin (0.2-1.3) mg/dL AST (17-59) U/L ALT (4-49) U/L Alkaline Phosphatase (38-126) U/L NT-Pro-B Natriuret Pep pg/mL Total Protein (6.3-8.2) g/dL Albumin (3.5-5.0) g/dL Urine Color Urine Appearance (Clear) Urine pH (5.0-8.0) Ur Specific [place] (1.001-1.035) Urine Protein (Negative) Urine Glucose (UA) (Negative) Urine Ketones (Negative) Urine Blood (Negative) Urine Nitrite (Negative) Urine Bilirubin (Negative) Urine Urobilinogen (<2.0) mg/dL Ur Leukocyte Esterase (Negative) Influenza Type A (PCR) Not Detected (Not Detectd) Influenza Type B (PCR) Not Detected (Not Detectd) RSV (PCR) Not Detected (Not Detectd) SARS-CoV-2 (PCR) Not Detected (Not Detectd) 08/27/23 08/27/23 Range/Units 11:36 11:36 WBC (3.8-10.6) k/uL RBC (4.30-5.90) m/uL Hgb (13.0-17.5) gm/dL Hct (39.0-53.0) % MCV (80.0-100.0) fL MCH (25.0-35.0) pg MCHC (31.0-37.0) g/dL RDW (11.5-15.5) % Plt Count (150-450) k/uL MPV Neutrophils % % Lymphocytes % % Monocytes % % Eosinophils % % Basophils % % Neutrophils # (1.3-7.7) k/uL Lymphocytes # (1.0-4.8) k/uL Monocytes # (0-1.0) k/uL Eosinophils # (0-0.7) k/uL Basophils # (0-0.2) k/uL PT (10.0-12.5) sec INR (<1.2) APTT (22.0-30.0) sec VBG pH (7.31-7.41) VBG pCO2 (37-51) mmHg VBG HCO3 (24-28) mmol/L Sodium 130 L (137-145) mmol/L Potassium 4.5 (3.5-5.1) mmol/L Chloride 99 (98-107) mmol/L Carbon Dioxide 26 (22-30) mmol/L Anion Gap 5 mmol/L BUN 11 (9-20) mg/dL Creatinine 0.87 (0.66-1.25) mg/dL Est GFR (CKD-EPI)AfAm >90 (>60 ml/min/1.73 sqM) Est GFR (CKD-EPI)NonAf 84 (>60 ml/min/1.73 sqM) Glucose 102 H (74-99) mg/dL Plasma Lactic Acid García (0.7-2.0) mmol/L Calcium 8.4 (8.4-10.2) mg/dL Magnesium 1.4 L (1.6-2.3) mg/dL Total Bilirubin 0.8 (0.2-1.3) mg/dL AST 27 (17-59) U/L ALT 17 (4-49) U/L Alkaline Phosphatase 76 (38-126) U/L NT-Pro-B Natriuret Pep 931 pg/mL Total Protein 7.5 (6.3-8.2) g/dL Albumin 3.7 (3.5-5.0) g/dL Urine Color Urine Appearance (Clear) Urine pH (5.0-8.0) Ur Specific [place] (1.001-1.035) Urine Protein (Negative) Urine Glucose (UA) (Negative) Urine Ketones (Negative) Urine Blood (Negative) Urine Nitrite (Negative) Urine Bilirubin (Negative) Urine Urobilinogen (<2.0) mg/dL Ur Leukocyte Esterase (Negative) Influenza Type A (PCR) (Not Detectd) Influenza Type B (PCR) (Not Detectd) RSV (PCR) (Not Detectd) SARS-CoV-2 (PCR) (Not Detectd) - EKG Data -: EKG Interpreted by Me EKG Comments: 12-lead Electrocardiogram Interpretation Note EKG was reviewed and interpreted by myself. 12-lead ECG performed at 0924 is interpreted by me as revealing normal sinus rhythm at a rate of 80 beats per minute. [place] is normal. [place] interval is 155 ms, QRS durations 94 ms, QTc is 437 ms.. There were no ST or T wave abnormalities to suggest myocardial ischemia or injury. R wave progression across the precordium was satisfactory. By my interpretation this EKG is non-diagnostic for acute ischemia. Critical Care Time Critical Care Time: Yes Total Critical Care Time: 34 Disposition Clinical Impression: Dyspnea, Hypoxic respiratory failure, Hypomagnesemia Disposition: ADMITTED IP TO THIS [facility] Condition: Serious Time of Disposition: 11:30
[2023-08-27 12:37] LABS: ALT 17 U/L (4-49); AST 27 U/L (17-59); African American GFR (CKD) >90 (>60 ml/min/1.73 sqM); Albumin 3.7 g/dL (3.5-5.0); Alkaline Phosphatase 76 U/L (38-126); Anion Gap 5 mmol/L; Blood Urea Nitrogen 11 mg/dL (9-20); Calcium 8.4 mg/dL (8.4-10.2); Carbon Dioxide 26 mmol/L (22-30); Chloride 99 mmol/L (98-107); Glucose 102 mg/dL (74-99); Magnesium 1.4 mg/dL (1.6-2.3); Non-African American GFR(CKD) 84 (>60 ml/min/1.73 sqM); Potassium 4.5 mmol/L (3.5-5.1); Sodium 130 mmol/L (137-145); Total Bilirubin 0.8 mg/dL (0.2-1.3); Total Protein 7.5 g/dL (6.3-8.2)
[2023-08-27] MEDS: IPRATROPIUM-ALBUTEROL 3 ML NEB INHALATION SCH (12:42)
[2023-08-27] MEDS: methylPREDNISolone SOD SUCCI 125 MG/2 ML VIAL IV STA (12:56)
[2023-08-27] MEDS: ACETAMINOPHEN TAB 325 MG TAB PO PRN (13:34)
[2023-08-27] MEDS: SODIUM CHLORIDE 0.9% 1,000 ML IV SCH (13:35)
--- NOTE | 2023-08-27 15:10 | P.CNPUL ---
History of Present Illness Consult date: 08/27/23 Reason for consult: dyspnea, hypoxemia History of present illness: This is a 78-year-old male patient was admitted to the hospital because of inc reased dyspnea and hypoxemia. The patient reports recent worsening shortness of breath although he seems to be having trouble breathing for longer periods of time probably a year or so. He underwent a recent turbinoplasty and septoplasty by ENT. Postop, he was noted to be more hypoxic and is pulse ox was dropping considerably. He was also getting short of breath and for that reason he presented to the emergency department. No history of any chronic lung disease. He is a non-smoker although has been exposed to secondhand cigarette smoke. The patient is retired from the [employer]. He has also served in the [employer] for total of 5 years during which she has exposure to asbestos. No exposure to any animals or birds. No exposure to any farming material or products. No intake of any amiodarone as the patient has history of atrial fibrillation and is currently maintained on anticoagulation with Xarelto. No history of any connective tissue disease. No history of vasculitis. The patient has limited cough. Exertional dyspnea. No swelling in lower extremities. No pleurisy. No hemoptysis. The WBC count is at 10.8 with a hemoglobin 11.2 and a platelet count of 243. Normal coagulation profile. Electrolytes are all within normal limits. Sodium levels at 130, BUN 11 with a creatinine of 0.8. proBNP level is 931. The viral screening panel came back negative. UA was negative. The chest x-ray was done and it showed hyperinflation. CAT scan of the chest was abnormal with diffuse bilateral groundglass pulmonary infiltrates scattered throughout the lung gregorio bilaterally. There were few emphysematous bullae. Of significance however was a groundglass appearance of the lungs bilaterally. No evidence of any pulmonary embolism. At this point in time, the patient is on 6 L of O2 nasal cannula with a pulse ox of 93%. No previous CAT scans for comparison. The patient has had previous chest x-rays that does not show any significant abnormalities. CAT scan of the face was also done in the ED and it showed bilateral nasal stents placed which were patent. There was also mild prominence nasal sinus disease most prominent in the ethmoid sinus. Patient has also history of chronic back pain, and previous CAT scan of the lumbar spine that showed multilevel degenerative changes in the lumbar spine greatest at the level of L3-L4. Review of Systems Constitutional: Reports fatigue Eyes: denies as per HPI, denies blurred vision, denies bulging eye, denies decreased vision, denies diplopia, denies discharge, denies dry eye, denies irritation, denies itching, denies pain, denies photophobia, denies loss of peripheral vision, denies loss of vision, denies tunnel vision/blind spots Ears: deny: decreased hearing, ear discharge, earache, tinnitus Ears, nose, mouth and throat: Reports as per HPI Breasts: absent: as per HPI, gynecomastia Cardiovascular: Reports decreased exercise tolerance, Reports dyspnea on exertion Respiratory: Reports as per HPI, Reports dyspnea Gastrointestinal: Reports as per HPI Genitourinary: Reports as per HPI Musculoskeletal: Reports low back pain Musculoskeletal: absent: ankle pain, ankle stiffness, ankle swelling, as per HPI, elbow pain, elbow stiffness, elbow swelling, foot pain, foot stiffness, foot swelling, hand pain, hand stiffness, hand swelling, hip pain, hip stiffness, hip swelling, knee pain, knee stiffness, knee swelling, shoulder pain, shoulder stiffness, shoulder swelling, wrist pain, wrist stiffness, wrist swelling Integumentary: Reports as per HPI Neurological: Reports as per HPI Psychiatric: Reports as per HPI Endocrine: Reports as per HPI Hematologic/Lymphatic: Reports as per HPI Allergic/Immunologic: Reports as per HPI Past Medical History Past Medical History: Atrial Fibrillation, Cancer, Chest Pain / Angina, GERD/Reflux, Hypertension, Osteoarthritis (OA), Prostate Disorder, Sleep Apnea/CPAP/BIPAP, Thyroid Disorder Additional Past Medical History / Comment(s): Insomnia, deviated septum - troubl e breathing , Uses cpap. allergies. dry mouth, hx basal cell behind ear. hx of thyroid cancer. BPH. back and neck pain. History of Any Multi-Drug Resistant Organisms: None Reported Past Surgical History: Orthopedic Surgery Additional Past Surgical History / Comment(s): cardioversion 08/23, removal of basal cell cancer, thyroidectomy, ankle surgery. colonoscopy, cataracts, Nasal surgery Past Anesthesia/Blood Transfusion Reactions: No Reported Reaction Past Psychological History: No Psychological Hx Reported Smoking Status: Never smoker Past Alcohol Use History: None Reported Past Drug Use History: None Reported - Past Family History Father Family Medical History: Coronary Artery Disease (CAD) Mother Family Medical History: COPD Medications and Allergies Home Medications Medication Instructions Recorded Confirmed Type Dapsone 25 mg PO BID 12/23/14 08/27/23 History Omeprazole [PriLOSEC] 20 mg PO BID 12/23/14 08/27/23 History Zolpidem Tartrate [Ambien] 10 mg PO HS 12/23/14 08/27/23 History Fexofenadine HCl 180 mg PO HS 08/20/23 08/27/23 History Ipratropium-Albuterol Nebulize 3 ml INHALATION RT-BID 08/20/23 08/27/23 History [Duoneb 0.5 mg-3 mg/3 ml Soln] Losartan [Cozaar] 25 mg PO DAILY 08/20/23 08/27/23 History Metoprolol Succinate [Metoprolol 25 mg PO BID 08/20/23 08/27/23 History Succinate ER] Rivaroxaban [Xarelto] 20 mg PO DAILY 08/20/23 08/27/23 History Tamsulosin [Flomax] 0.4 mg PO HS 08/20/23 08/27/23 History methocarbamoL 750 mg PO QID PRN 08/20/23 08/27/23 History traMADol HCL 50 mg PO DAILY PRN 08/20/23 08/27/23 History Azelastine HCl [Astelin Nasal 1 spr EA NOSTRIL DAILY 08/27/23 08/27/23 History [facility]] Carboxymethylcellulose Sodium 1 drop BOTH EYES BID 08/27/23 08/27/23 History [Refresh Tears] Cephalexin [Keflex] 500 mg PO QID 08/27/23 08/27/23 History Levothyroxine Sodium [Synthroid] 137 mcg PO DAILY 08/27/23 08/27/23 History Allergies Allergy/AdvReac Type Severity Reaction Status Date / Time gluten Allergy Unknown Verified 08/27/23 12:12 Physical Exam Vitals: Vital Signs Temp Pulse Resp BP Pulse Ox 08/27/23 13:30 94 20 144/69 93 L 08/27/23 12:53 76 08/27/23 12:42 74 92 L 08/27/23 11:10 73 08/27/23 10:46 83 20 170/85 89 L 08/27/23 09:14 98.2 F 84 26 H 135/67 84 L Intake and Output 08/27/23 08/27/23 08/27/23 06:59 14:59 22:59 Other: Weight 96.162 kg General appearance the patient is calm comfortable in mild degree of respiratory distress currently on 6 L of O2 nasal cannula Head exam was generally normal. There was no scleral icterus or corneal arcus. Mucous membranes were moist. Neck was supple and without jugular venous distension, thyromegaly, or carotid bruits. Carotids were easily palpable bilaterally. There was no adenopathy. Lung sounds are diminished and the patient has some faint crackles at lung base bilaterally. No significant wheezing appreciated on today's examination. Cardiac exam revealed the PMI to be normally situated and sized. The rhythm was irregular and no extrasystoles were noted during several minutes of auscultation. The first and second heart sounds were normal and physiologic splitting of the second heart sound was noted. There were no murmurs, rubs, clicks, or gallops. Abdominal exam revealed normal bowel sounds. The abdomen was soft, non-tender, and without masses, organomegaly, or appreciable enlargement of the abdominal aorta. Examination of the extremities revealed easily palpable radial, femoral and pedal pulses. There was no cyanosis, clubbing or edema. Examination of the skin revealed no evidence of significant rashes, suspicious appearing nevi or other concerning lesions. Neurologically, the patient is awake and alert and the patient does not have any focal neurological deficit. Cranial nerves are essentially intact. Results - Laboratory Findings CBC and BMP: 08/27/23 10:10 08/27/23 11:36 PT/INR, D-dimer PT 11.5 sec (10.0-12.5) 08/27/23 11:01 INR 1.1 (<1.2) 08/27/23 11:01 Abnormal lab findings: Abnormal Labs 08/27/23 08/27/23 10:10 11:36 WBC 10.8 H RBC 3.84 L Hgb 11.2 L Hct 35.0 L Neutrophils # 9.2 H Lymphocytes # 0.8 L Sodium 130 L Glucose 102 H Magnesium 1.4 L - Diagnostic Findings Chest x-ray: image reviewed CT scan - chest: image reviewed Assessment and Plan Plan: Assessment Acute/subacute hypoxic respiratory failure the patient is currently on 60s of oxygen by nasal cannula Diffuse bilateral groundglass pulmonary filtrates exact nature is not clear. Rule out postinfectious bilateral groundglass pulm infiltrates. Rule out underlying chronic lung diseases such as hypersensitivity pneumonitis or eosi nophilic pneumonitis. No clear indication for regulated pulmonary toxicity. No indication for any form of chronic connective tissue disease disorder. No history of any cardiomyopathy. No history of CHF. No reported history of aspiration. Idiopathic pneumonias cannot be completely excluded. Patient is a non-smoker Chronic A-fib with anticoagulation with Eliquis Hypertension Obstructive sleep apnea maintained on CPAP therapy History of difficulty breathing through nose and the patient has undergone septoplasty and tympanoplasty and the patient has some nasal stents bilaterally inserted by ENT Chronic degenerative disc disease Chronic insomnia BPH Plan Titrate oxygen flow to maintain saturation above 90% Patient is currently on 60s of O2 nasal cannula Start DuoNeb updrafts Start IV Solu-Medrol Check procalcitonin level Check rheumatoid factor, JOSE, sed rate and JAY JAY screen and P ANCA Check JAXON levels Check an echocardiogram Follow-up the patient's progression. May need an HRCT of the chest. May need a bronchoscopy versus a thoracoscopic wedge biopsy of the lung if no final diagnosis was achieved.
[2023-08-27] MEDS ORDERED: methocarbamoL 750 MG TAB PO PRN (17:35)
[2023-08-27 19:21] LABS: Rheumatoid Factor, Qnt 208 IU/mL (0-15)
[2023-08-27 20:10] LABS: Glucose,Whole Blood 214 mg/dL (70-110)
[2023-08-27] MEDS ORDERED: methylPREDNISolone SOD SUCCI 40 MG/ML 1 ML VIAL IV SCH (21:00)
[2023-08-27 21:09] LABS: Anti-Smith Ab Interp Negative (Negative)
[2023-08-27] MEDS: ZOLPIDEM 5 MG TAB PO SCH (22:16)
[2023-08-27] MEDS: HEPARIN SODIUM,PORCINE 5,000 UNIT/ML 1 ML VIAL SQ SCH (22:16)
[2023-08-27] MEDS: METOPROLOL SUCCINATE (ER) 25 MG TAB.ER.24H PO SCH (22:16)
[2023-08-27] MEDS: LORATADINE 10 MG TAB PO SCH (22:16)
[2023-08-27] MEDS: TAMSULOSIN 0.4 MG CAP.ER.24H PO SCH (22:19)
[2023-08-27] MEDS: ARTIFICIAL TEARS-HYPROMELLOSE DROPS 15 ML BTL BOTH EYES SCH (22:19)
[2023-08-28] MEDS: ZOLPIDEM 5 MG TAB PO SCH (00:30)
--- NOTE | 2023-08-28 02:07 | HP ---
HISTORY AND PHYSICAL HISTORY OF PRESENT ILLNESS: This is a 78-year-old white male with hypoxemia and increased shortness of breath; history of atrial fibrillation, on Xarelto; hypertension; GERD; and recently had nasal surgery with Dr. Virk with septum surgery and nasal stents removed. The patient was having increased breathing trouble surgery in his nose. He has shortness of breath, which is bad today, progressive dyspnea for weeks to months. Chronic secondary smoke exposure. He is having hard time breathing on his nose, which is not good. He is on 5 L nasal cannula, possibly have to switch to a mask. HOME MEDICATIONS: 1. Dapsone 25 b.i.d. 2. Omeprazole 20 b.i.d. 3. Ambien 10 daily. 4. Fexofenadine 1 daily. 5. DuoNeb q.i.d. 6. Cozaar 25 daily. 7. Metoprolol succinate 25 b.i.d. 8. Xarelto 20 daily. 9. Flomax 0.4 daily. 10.Levothyroxine 137 daily. REVIEW OF SYSTEMS: A 14-point review of systems negative except for mentioned above. MEDICAL HISTORY: He has history of atrial fibrillation; cancer; chest pain; GERD; hypertension; osteoarthritis; prostate disorder; sleep apnea, he is on a BiPAP and CPAP; hypothyroidism; he had a cardioversion on 08/23; he has basal cell cancer; thyroidectomy; ankle surgery; colonoscopy; cataract; and nasal surgery. FAMILY HISTORY: Father, coronary artery disease. Mother, COPD. PHYSICAL EXAMINATION: VITAL SIGNS: Temperature 98.2, pulse 84, and O2 saturation is 92% to 93%. HEENT: Nasal congestion. LUNGS: Show wheezing x4. HEART: Regular rate and rhythm. ABDOMEN: Soft. EXTREMITIES: Range of motion good. NEURO: Alert and oriented x4. SKIN: No rashes. 2+ edema. IMAGING: CT of the face reveals intact stents. Chest CT is negative for PAD. He has emphysema, interstitial nephritis, interstitial pneumonitis, and possible pneumonia. LABORATORY DATA: White count of 10.8 with a left shift. Hemoglobin is 11.2. Sodium 135, BUN is 11, and creatinine 0.8. I am going to start him on antibiotics empirically due to procalcitonin level. Continue breathing treatments. Prognosis is guarded. EKG shows normal sinus rhythm, no ST-T changes in his EKG. Hypomagnesemia, will have to be replaced. Acute on chronic respiratory failure, dyspnea secondary to possible environmental exposure as well as recent surgery on his sinuses. Prognosis guarded. Continue current treatment. MMODL / IJN: [id number] /
[2023-08-28] MEDS: AZITHROMYCIN 500 MG in SODIUM CHLORIDE 0.9% 250 ML IVPB SCH (05:19)
[2023-08-28] MEDS: methylPREDNISolone SOD SUCCI 125 MG/2 ML VIAL IV SCH (05:19)
[2023-08-28] MEDS: PIPERACILLIN-TAZOBACTAM 3.375 GM in SODIUM CHLORIDE 0.9% 100 ML IVPB SCH (05:20)
[2023-08-28] MEDS: LEVOTHYROXINE 137 MCG TAB PO SCH (05:54)
[2023-08-28 08:14] LABS: Glucose,Whole Blood 141 mg/dL (70-110)
[2023-08-28] MEDS: IPRATROPIUM-ALBUTEROL 3 ML NEB INHALATION SCH (08:24)
[2023-08-28] MEDS: LOSARTAN 25 MG TAB PO SCH (08:49)
[2023-08-28] MEDS: PANTOPRAZOLE 40 MG TABLET PO SCH (08:49)
[2023-08-28] MEDS: AZELASTINE 137MCG/SPRAY EA NOSTRIL SCH (08:50)
[2023-08-28] MEDS: RIVAROXABAN 20 MG TAB PO SCH (08:50)
[2023-08-28 09:17] LABS: Basophils # (A) 0.01 X 10*3/uL (0.00-0.10); Basophils % (A) 0.1 %; Eosinophils # (A) 0 X 10*3/uL (0.04-0.35); Eosinophils % (A) 0 %; HCT 30.4 % (39.6-50.0); HGB 10.2 g/dL (13.0-17.0); Lymphocytes % (A) 10.7 %; MCH 29.7 pg (27.0-32.0); MCHC 33.6 g/dL (32.0-37.0); MCV 88.4 FL (80.0-97.0); Mean Platelet Volume 10.4 FL (9.5-12.2); Monocytes # (A) 0.53 X 10*3/uL (0.20-1.00); Monocytes % (A) 7.1 %; NRBC Per 100 WBC 0 X 10*3/uL (0.00-0.01); Neutrophils # (A) 6.12 X 10*3/uL (1.80-7.70); Neutrophils % (A) 81.8 %; Platelet Count 251 X 10*3/uL (140-440); RBC 3.44 X 10*6/uL (4.40-5.60); RDW 15.1 % (11.5-14.5); WBC 7.48 X 10*3/uL (4.50-10.00)
[2023-08-28 09:25] LABS: ALT 15 U/L (10-49); AST 20 U/L (14-35); Albumin 3.6 g/dL (3.8-4.9); Albumin/Globulin Ratio 1.06 Ratio (1.60-3.17); Alkaline Phosphatase 66 U/L (41-126); Blood Urea Nitrogen 15.3 mg/dL (9.0-27.0); Carbon Dioxide 21.5 mmol/L (21.6-31.8); Chloride 100 mmol/L (96-109); Globulin 3.4 g/dL (1.6-3.3); Glucose 145 mg/dL (70-110); Potassium 4.5 mmol/L (3.5-5.5); Sodium 132 mmol/L (135-145); Total Bilirubin 0.4 mg/dL (0.3-1.2)
--- NOTE | 2023-08-28 11:28 | CA ---
Transthoracic Echo Report Name: Cosme Melton Age: 78 Gender: M : 1945 Exam Date: 08/27/2023 14:11 Exam Location: [facility] Ht (in): 69 Wt (lb): 212 Ordering Physician: Pamela Roman MD Attending/Referring Phys: Bilingual Student Tutor Christina Drew RDCS Procedure CPT: Indications: dyspnea Cardiac Hx: Technical Quality: Technically difficult study Contrast 1: Definity Total Dose (mL): 2 Contrast 2: Total Dose (mL): MEASUREMENTS (Male / Female) Normal Values 2D ECHO LV Diastolic Diameter PLAX 4.9 cm 4.2 - 5.9 / 3.9 - 5.3 cm LV Systolic Diameter PLAX 2.8 cm IVS Diastolic Thickness 0.9 cm 0.6 - 1.0 / 0.6 - 0.9 cm LVPW Diastolic Thickness 1.1 cm 0.6 - 1.0 / 0.6 - 0.9 cm LV Relative Wall Thickness 0.4 RV Internal Dim ED PLAX 3.1 cm LVOT Diameter 2.3 cm LV Diastolic Volume MOD 4C 143.0 cm??? LV Diastolic Length 4C 8.5 cm LA Volume 64.7 cm??? 18 - 58 / 22 - 52 cm??? LA Volume Index 29.5 cm???/m??? 16 - 28 cm???/m??? DOPPLER AV Peak Velocity 161.2 cm/s AV Peak Gradient 10.4 mmHg AV Mean Velocity 102.5 cm/s AV Mean Gradient 4.9 mmHg AV Velocity Time Integral 27.9 cm LVOT Peak Velocity 139.1 cm/s LVOT Peak Gradient 7.7 mmHg LVOT Velocity Time Integral 25.9 cm LVOT Stroke Volume 104.1 cm??? LVOT Stroke Volume Index 49.2 ml/m??? LVOT Cardiac Index 4084.9 cm???/min???m??? AV Area Cont Eq vti 3.7 cm??? AV Area Cont Eq pk 3.5 cm??? MV Area PHT 3.8 cm??? Mitral E Point Velocity 94.2 cm/s Mitral A Point Velocity 75.8 cm/s Mitral E to A Ratio 1.2 MV Deceleration Time 198.1 ms TR Peak Velocity 277.4 cm/s TR Peak Gradient 30.8 mmHg Right Atrial Pressure 5.0 mmHg Pulmonary Artery Systolic Pressu 35.8 mmHg Right Ventricular Systolic Press 35.8 mmHg PV Peak Velocity 122.4 cm/s PV Peak Gradient 6.0 mmHg FINDINGS Left Ventricle Left ventricular ejection fraction is estimated at 60-65 %. Left ventricular cavity size normal. Left ventricular wall thickness normal. No obvious regional wall motion abnormalities. Right Ventricle Normal right ventricular size and function. Right ventricular systolic pressure within normal limits. Right Atrium Normal right atrial size. Left Atrium Normal left atrial size. Mitral Valve Structurally normal mitral valve. No mitral stenosis, regurgitation or prolapse. Aortic Valve Aortic valve not well visualized. No aortic valve stenosis or regurgitation. Tricuspid Valve Structurally normal tricuspid valve. No tricuspid stenosis. Trace tricuspid regurgitation. Pulmonic Valve Structurally normal pulmonic valve. No pulmonic stenosis. No pulmonic regurgitation. Pericardium No pericardial effusion. Aorta Aortic annulus normal. Ascending aorta not well visualized. CONCLUSIONS Left ventricular ejection fraction 60-65% No mitral regurgitation Trace tricuspid regurgitation No pericardial effusion Previewed by: Dr. Bart Arredondo DO (Electronically Signed) Final Date: 28 Aug 2023 11:27
[2023-08-28 12:35] LABS: Glucose,Whole Blood 125 mg/dL (70-110)
--- NOTE | 2023-08-28 14:45 | P.PN ---
Subjective Progress Note Date: 08/28/23 This is a 78-year-old male patient was admitted to the hospital because of increased dyspnea and hypoxemia. The patient reports recent worsening shortness of breath although he seems to be having trouble breathing for longer periods of time probably a year or so. He underwent a recent turbinoplasty and septoplasty by ENT. Postop, he was noted to be more hypoxic and is pulse ox was dropping considerably. He was also getting short of breath and for that reason he presented to the emergency department. No history of any chronic lung disease. He is a non-smoker although has been exposed to secondhand cigarette smoke. The patient is retired from the [employer]. He has also served in the [employer] for total of 5 years during which she has exposure to asbestos. No exposure to any animals or birds. No exposure to any farming material or products. No intake of any amiodarone as the patient has history of atrial fibrillation and is currently maintained on anticoagulation with Xarelto. No history of any connective tissue disease. No history of vasculitis. The patient has limited cough. Exertional dyspnea. No swelling in lower extremities. No pleurisy. No hemoptysis. The WBC count is at 10.8 with a hemoglobin 11.2 and a platelet count of 243. Normal coagulation profile. Electrolytes are all within normal limits. Sodium levels at 130, BUN 11 with a creatinine of 0.8. proBNP level is 931. The viral screening panel came back negative. UA was negative. The chest x-ray was done and it showed hyperinflation. CAT scan of the chest was abnormal with diffuse bilateral groundglass pulmonary infiltrates scattered throughout the lung gregorio bilaterally. There were few emphysematous bullae. Of significance however was a groundglass appearance of the lungs bilaterally. No evidence of any pulmonary embolism. At this point in time, the patient is on 6 L of O2 nasal cannula with a pulse ox of 93%. No previous CAT scans for comparison. The patient has had previous chest x-rays that does not show any significant abnormalities. CAT scan of the face was also done in the ED and it showed bilateral nasal stents placed which were patent. There was also mild prominence nasal sinus disease most prominent in the ethmoid sinus. Patient has also history of chronic back pain, and previous CAT scan of the lumbar spine that showed multilevel degenerative changes in the lumbar spine greatest at the level of L3-L4. 08/28/2023, the patient is being seen for a follow-up. Feeling better and less short of breath compared to yesterday. Noted the patient was noted to have an interstitial lung disease with diffuse bilateral groundglass pulmonary changes. The procalcitonin level is at 0.04. The JOSE and the JAY JAY screen was negative. However, the patient was noted to have an elevated rheumatoid factor and the level was at 208. He does have chronic arthritic pain involving the upper extremities and he has diffuse body aching. He seems to be less short of breath compared to yesterday. He remains on oxygen 5 L with a pulse ox of 95%. Able to communicate. Coughing up some brownish sputum and sputum sample be collected. The white cell count at 7.4 with a hemoglobin 10.2 and a platelet count of 251. Coagulation profile was essentially within normal limits. UA was negative. Remains on bronchodilators. Objective - Vital Signs Vital signs: Vital Signs Temp 97.9 F 08/28/23 12:27 Pulse 96 08/28/23 12:54 Resp 20 08/28/23 12:27 BP 134/66 08/28/23 12:27 Pulse Ox 95 08/28/23 12:27 FiO2 Intake & Output 08/27/23 08/28/23 08/28/23 18:59 06:59 18:59 Intake Total 220 Balance 220 Weight 96.162 kg 96.162 kg Intake: Oral 220 Other: Voiding Method Toilet - Exam General appearance the patient is calm comfortable in mild degree of respiratory distress currently on 5 L of O2 nasal cannula Head exam was generally normal. There was no scleral icterus or corneal arcus. Mucous membranes were moist. Neck was supple and without jugular venous distension, thyromegaly, or carotid bruits. Carotids were easily palpable bilaterally. There was no adenopathy. Lung sounds are diminished and the patient has some faint crackles at lung base bilaterally. No significant wheezing appreciated on today's examination. Cardiac exam revealed the PMI to be normally situated and sized. The rhythm was irregular and no extrasystoles were noted during several minutes of auscultation. The first and second heart sounds were normal and physiologic splitting of the second heart sound was noted. There were no murmurs, rubs, clicks, or gallops. Abdominal exam revealed normal bowel sounds. The abdomen was soft, non-tender, and without masses, organomegaly, or appreciable enlargement of the abdominal aorta. Examination of the extremities revealed easily palpable radial, femoral and pedal pulses. There was no cyanosis, clubbing or edema. Examination of the skin revealed no evidence of significant rashes, suspicious appearing nevi or other concerning lesions. Neurologically, the patient is awake and alert and the patient does not have any focal neurological deficit. Cranial nerves are essentially intact. - Labs CBC & Chem 7: 08/28/23 06:14 08/28/23 06:14 Labs: Abnormal Lab Results - Last 24 Hours (Table) 08/27/23 08/27/23 08/28/23 Range/Units 11:36 20:09 06:14 RBC 3.44 L (4.40-5.60) X 10*6/uL Hgb 10.2 L (13.0-17.0) g/dL Hct 30.4 L (39.6-50.0) % RDW 15.1 H (11.5-14.5) % Lymphocytes # 0.80 L (0.90-5.00) X 10*3/uL Eosinophils # 0 L (0.04-0.35) X 10*3/uL Sodium (135-145) mmol/L Carbon Dioxide (21.6-31.8) mmol/L Glucose (70-110) mg/dL POC Glucose (mg/dL) 214 H (70-110) mg/dL Albumin (3.8-4.9) g/dL Globulin (1.6-3.3) g/dL Albumin/Globulin Ratio (1.60-3.17) Ratio Rheumatoid Factor 208 H (0-15) IU/mL 08/28/23 08/28/23 08/28/23 Range/Units 06:14 08:11 12:30 RBC (4.40-5.60) X 10*6/uL Hgb (13.0-17.0) g/dL Hct (39.6-50.0) % RDW (11.5-14.5) % Lymphocytes # (0.90-5.00) X 10*3/uL Eosinophils # (0.04-0.35) X 10*3/uL Sodium 132 L (135-145) mmol/L Carbon Dioxide 21.5 L (21.6-31.8) mmol/L Glucose 145 H (70-110) mg/dL POC Glucose (mg/dL) 141 H 125 H (70-110) mg/dL Albumin 3.6 L (3.8-4.9) g/dL Globulin 3.4 H (1.6-3.3) g/dL Albumin/Globulin Ratio 1.06 L (1.60-3.17) Ratio Rheumatoid Factor (0-15) IU/mL Assessment and Plan Plan: Assessment Acute/subacute hypoxic respiratory failure the patient is currently on 5 L of oxygen by nasal cannula, clinically improving. Diffuse bilateral groundglass pulmonary filtrates exact nature is not clear. Rule out postinfectious bilateral groundglass pulm infiltrates. Rule out underlying chronic lung diseases such as hypersensitivity pneumonitis or eosinophilic pneumonitis. No clear indication for regulated pulmonary toxicity. No history of any cardiomyopathy. No history of CHF. No reported history of aspiration. Idiopathic pneumonias cannot be completely excluded. Patient is a non-smoker. Consider this lung disease as secondary to connective tissue disease, possible rheumatoid arthritis. RF factor was elevated above 200. JOSE and JAY JAY screen was negative. Chronic A-fib with anticoagulation with Eliquis Hypertension Obstructive sleep apnea maintained on CPAP therapy History of difficulty breathing through nose and the patient has undergone septoplasty and tympanoplasty and the patient has some nasal stents bilaterally inserted by ENT Chronic degenerative disc disease Chronic insomnia BPH Plan Titrate oxygen flow to maintain saturation above 90% Patient is currently on 5 L of O2 nasal cannula Continue DuoNeb nebulized treatments and IV Solu-Medrol Check procalcitonin level level was low Awaiting echocardiogram Check JAXON levels Ordered an HRCT of the chest for tomorrow Continue to follow Thoracoscopic wedge biopsy if the ILD is unexplained.
[2023-08-28 17:17] LABS: Glucose,Whole Blood 217 mg/dL (70-110)
[2023-08-28 21:56] LABS: Glucose,Whole Blood 134 mg/dL (70-110)
[2023-08-29 05:52] LABS: Glucose,Whole Blood 156 mg/dL (70-110)
--- NOTE | 2023-08-29 10:32 | P.PN ---
Subjective Progress Note Date: 08/29/23 Principal diagnosis: Acute hypoxic respiratory failure on 5 L oxygen Interstitial pneumonia Chronic atrial fibrillation Hypertension hypertensive cardiovascular disease Obstructive sleep apnea Benign prostatic hypertrophy Chronic insomnia 08/29/2023, patient seen eval examined while covering for Dr. Vela, patient sitting upright in the chair still short of breath, on 5 L oxygenpatient is afebrile heart rate 72 blood pressure is 150/70 saturation 93%, patient is a nonsmoker, computed tomography scan of the chest extensive central lobar emphysema with groundglass appearance with large airways no PE seen henson currently on bronchodilators IV steroids and broad-spectrum IV antibiotics with Zosyn and Zithromax. Reviewed data revealed that patient admitted [facility] with increasing shortness of breath and desaturation which has been progressive for over a year patient underwent septoplasty and turbinoplasty afterwards patient has been hypoxic. Patient has chronic atrial fibrillation on Xarelto Objective - Vital Signs Vital signs: Vital Signs Temp 97.7 F 08/29/23 07:50 Pulse 96 08/29/23 08:32 Resp 18 08/29/23 07:50 BP 147/72 08/29/23 07:50 Pulse Ox 93 L 08/29/23 08:32 FiO2 Intake & Output 08/28/23 08/29/23 08/29/23 18:59 06:59 18:59 Intake Total 800 Balance 800 Intake: Intake, IV Titration 800 Amount Piperacillin-Tazobactam 3 200 .375 gm In Sodium Chloride 0.9% 100 ml @ 25 mls/hr IVPB Q8H [facility] Rx#: [id number] Sodium Chloride 0.9% 1, 600 000 ml @ 50 mls/hr IV . Q20H [facility] Rx#:[id number] Other: Voiding Method Toilet Toilet # Voids 3 1 # Bowel Movements 1 - Constitutional General appearance: Present: average body habitus, disheveled - EENT Eyes: Present: EOMI, PERRLA Ears: bilateral: normal - Neck Neck: Present: normal ROM Carotids: bilateral: upstroke normal - Respiratory Respiratory: bilateral: diminished, wheezing - Cardiovascular Rhythm: regular Heart sounds: normal: S1, S2 - Gastrointestinal General gastrointestinal: Present: soft - Integumentary Integumentary: Present: normal - Neurologic Neurologic: Present: CNII-XII intact - Musculoskeletal Musculoskeletal: Present: gait normal, generalized weakness, strength equal bilaterally - Psychiatric Psychiatric: Present: A&O x's 3, intact judgment & insight - Labs CBC & Chem 7: 08/28/23 06:14 08/28/23 06:14 Labs: Abnormal Lab Results - Last 24 Hours (Table) 08/28/23 08/28/23 08/28/23 Range/Units 12:30 17:15 21:51 POC Glucose (mg/dL) 125 H 217 H 134 H (70-110) mg/dL 08/29/23 Range/Units 05:38 POC Glucose (mg/dL) 156 H (70-110) mg/dL Assessment and Plan Assessment: status post recent septoplasty and rhinoplasty Acute hypoxic respiratory failure on 5 L oxygen Interstitial pneumonia Chronic atrial fibrillation Hypertension hypertensive cardiovascular disease Obstructive sleep apnea Benign prostatic hypertrophy other active problems including Chronic insomnia, hypothyroidism, seasonal ALLERGIES, peptic ulcer disease Plan: continue supplemental oxygen titrated down as tolerated keeping saturation 99% Continue high-dose IV steroids bronchodilator Broad-spectrum antibiotics with Zosyn and Zithromax Direct oral anticoagulant continue Synthroid for hypothyroidism Continue Cozaar and metoprololfor hypertension hypertensive cardiovascular disease continue Protonix for peptic ulcer disease Flomax for BPH Ambien for chronic insomnia Time with Patient: Greater than 30
[2023-08-29 12:47] LABS: Glucose,Whole Blood 167 mg/dL (70-110)
--- NOTE | 2023-08-29 15:09 | P.PN ---
Subjective Progress Note Date: 08/29/23 This is a 78-year-old male patient was admitted to the hospital because of increased dyspnea and hypoxemia. The patient reports recent worsening shortness of breath although he seems to be having trouble breathing for longer periods of time probably a year or so. He underwent a recent turbinoplasty and septoplasty by ENT. Postop, he was noted to be more hypoxic and is pulse ox was dropping considerably. He was also getting short of breath and for that reason he presented to the emergency department. No history of any chronic lung disease. He is a non-smoker although has been exposed to secondhand cigarette smoke. The patient is retired from the [employer]. He has also served in the [employer] for total of 5 years during which she has exposure to asbestos. No exposure to any animals or birds. No exposure to any farming material or products. No intake of any amiodarone as the patient has history of atrial fibrillation and is currently maintained on anticoagulation with Xarelto. No history of any connective tissue disease. No history of vasculitis. The patient has limited cough. Exertional dyspnea. No swelling in lower extremities. No pleurisy. No hemoptysis. The WBC count is at 10.8 with a hemoglobin 11.2 and a platelet count of 243. Normal coagulation profile. Electrolytes are all within normal limits. Sodium levels at 130, BUN 11 with a creatinine of 0.8. proBNP level is 931. The viral screening panel came back negative. UA was negative. The chest x-ray was done and it showed hyperinflation. CAT scan of the chest was abnormal with diffuse bilateral groundglass pulmonary infiltrates scattered throughout the lung gregorio bilaterally. There were few emphysematous bullae. Of significance however was a groundglass appearance of the lungs bilaterally. No evidence of any pulmonary embolism. At this point in time, the patient is on 6 L of O2 nasal cannula with a pulse ox of 93%. No previous CAT scans for comparison. The patient has had previous chest x-rays that does not show any significant abnormalities. CAT scan of the face was also done in the ED and it showed bilateral nasal stents placed which were patent. There was also mild prominence nasal sinus disease most prominent in the ethmoid sinus. Patient has also history of chronic back pain, and previous CAT scan of the lumbar spine that showed multilevel degenerative changes in the lumbar spine greatest at the level of L3-L4. 08/28/2023, the patient is being seen for a follow-up. Feeling better and less short of breath compared to yesterday. Noted the patient was noted to have an interstitial lung disease with diffuse bilateral groundglass pulmonary changes. The procalcitonin level is at 0.04. The JOSE and the JAY JAY screen was negative. However, the patient was noted to have an elevated rheumatoid factor and the level was at 208. He does have chronic arthritic pain involving the upper extremities and he has diffuse body aching. He seems to be less short of breath compared to yesterday. He remains on oxygen 5 L with a pulse ox of 95%. Able to communicate. Coughing up some brownish sputum and sputum sample be collected. The white cell count at 7.4 with a hemoglobin 10.2 and a platelet count of 251. Coagulation profile was essentially within normal limits. UA was negative. Remains on bronchodilators. 08/29/2023, I am seeing the patient for a follow-up. No new complaints. Still requiring oxygen at 5 L with a pulse ox of 97% and we have weaned him down to 4 L. Sitting up in a chair. No significant cough or sputum production. No chest pain. Remains on IV Solu-Medrol. Objective - Vital Signs Vital signs: Vital Signs Temp 97.7 F 08/29/23 07:50 Pulse 90 08/29/23 12:20 Resp 18 08/29/23 07:50 BP 147/72 08/29/23 07:50 Pulse Ox 93 L 08/29/23 08:32 FiO2 Intake & Output 08/28/23 08/29/23 08/29/23 18:59 06:59 18:59 Intake Total 800 Balance 800 Intake: Intake, IV Titration 800 Amount Piperacillin-Tazobactam 3 200 .375 gm In Sodium Chloride 0.9% 100 ml @ 25 mls/hr IVPB Q8H [facility] Rx#: [id number] Sodium Chloride 0.9% 1, 600 000 ml @ 50 mls/hr IV . Q20H [facility] Rx#:[id number] Other: Voiding Method Toilet Toilet # Voids 3 1 # Bowel Movements 1 - Exam General appearance the patient is calm comfortable in mild degree of respiratory distress currently on 5 L of O2 nasal cannula Head exam was generally normal. There was no scleral icterus or corneal arcus. Mucous membranes were moist. Neck was supple and without jugular venous distension, thyromegaly, or carotid bruits. Carotids were easily palpable bilaterally. There was no adenopathy. Lung sounds are diminished and the patient has some faint crackles at lung base bilaterally. No significant wheezing appreciated on today's examination. Cardiac exam revealed the PMI to be normally situated and sized. The rhythm was irregular and no extrasystoles were noted during several minutes of auscultation. The first and second heart sounds were normal and physiologic splitting of the second heart sound was noted. There were no murmurs, rubs, clicks, or gallops. Abdominal exam revealed normal bowel sounds. The abdomen was soft, non-tender, and without masses, organomegaly, or appreciable enlargement of the abdominal aorta. Examination of the extremities revealed easily palpable radial, femoral and pedal pulses. There was no cyanosis, clubbing or edema. Examination of the skin revealed no evidence of significant rashes, suspicious appearing nevi or other concerning lesions. Neurologically, the patient is awake and alert and the patient does not have any focal neurological deficit. Cranial nerves are essentially intact. - Labs CBC & Chem 7: 08/28/23 06:14 08/28/23 06:14 Labs: Abnormal Lab Results - Last 24 Hours (Table) 08/28/23 08/28/23 08/28/23 Range/Units 12:30 17:15 21:51 POC Glucose (mg/dL) 125 H 217 H 134 H (70-110) mg/dL 08/29/23 Range/Units 05:38 POC Glucose (mg/dL) 156 H (70-110) mg/dL Assessment and Plan Plan: Assessment Acute/subacute hypoxic respiratory failure the patient is currently on 4 L of oxygen by nasal cannula, clinically improving. Diffuse bilateral groundglass pulmonary filtrates exact nature is not clear. Rule out postinfectious bilateral groundglass pulm infiltrates. Rule out underlying chronic lung diseases such as hypersensitivity pneumonitis or eosinophilic pneumonitis. No clear indication for regulated pulmonary toxicity. No history of any cardiomyopathy. No history of CHF. No reported history of aspiration. Idiopathic pneumonias cannot be completely excluded. Patient is a non-smoker. Consider this lung disease as secondary to connective tissue di sease, possible rheumatoid arthritis. RF factor was elevated above 200. JOSE and JAY JAY screen was negative. Chronic A-fib with anticoagulation with Eliquis Hypertension Obstructive sleep apnea maintained on CPAP therapy History of difficulty breathing through nose and the patient has undergone se ptoplasty and tympanoplasty and the patient has some nasal stents bilaterally inserted by ENT Chronic degenerative disc disease Chronic insomnia BPH Plan Will continue same treatment Titrate oxygen flow to maintain saturation above 90% Patient is currently on 4 L of O2 nasal cannula Continue DuoNeb nebulized treatments and IV Solu-Medrol Check procalcitonin level level was low HRCT of the chest tomorrow Thoracoscopic wedge biopsy if the ILD is unexplained.
[2023-08-29 17:25] LABS: Glucose,Whole Blood 211 mg/dL (70-110)
[2023-08-29] MEDS ORDERED: DEXTROSE 50% SYRINGE 50 ML IVP PRN ×2 (17:31)
[2023-08-29] MEDS: INSULIN ASPART (NovoLOG) 100 UNIT/ML VIAL SQ SCH (17:40)
[2023-08-29] MEDS: traMADol 50 MG TAB PO PRN (17:40)
[2023-08-29 20:37] LABS: Glucose,Whole Blood 178 mg/dL (70-110)
[2023-08-30 07:24] LABS: Glucose,Whole Blood 162 mg/dL (70-110)
--- NOTE | 2023-08-30 09:08 | CT ---
EXAMINATION TYPE: CT chest wo con CT DLP: 1488 mGycm, Automated exposure control for dose reduction was used. DATE OF EXAM: 08/30/2023 8:49 AM COMPARISON: 08/27/2023 CLINICAL INDICATION:Male, 78 years old with history of ILD, use the HRCT protocol; PHH, interstitial lung disease TECHNIQUE: Multiple axial images were obtained through the chest. Sagittal and coronal reformats were created for review. Contrast used: mL of (None if empty) Oral contrast used: (None if empty) FINDINGS: LUNGS: There is no evidence of interstitial thickening, significant groundglass opacity, honeycombing or architectural distortion in the lungs. No acute area of infiltrative or consolidative change. Th ere is mild centrilobular emphysema greatest in the upper lung zones. LARGE AIRWAYS: Central airways are patent. Mild bronchial wall circumferential thickening throughout the lungs. No bronchiectasis. PLEURA: No pleural effusion or thickening. HEART: Size within normal limits. MEDIASTINUM: No gross evidence of adenopathy. VASCULATURE: No aortic aneurysm. MUSCULOSKELETAL: No acute osseous abnormalities SOFT TISSUES/LYMPH NODES: Unremarkable. LOWER NECK: No significant findings. UPPER ABDOMEN: Right renal cyst partially visualized. IMPRESSION: 1. Diffuse groundglass/increase appearance of the lungs seen on 08/27/2023 is now well appreciated on today's exam. No evidence for pulmonary fibrosis or evidence for interstitial lung disease. 2. COPD with mild emphysema and mild bronchial wall thickening.
[2023-08-30 11:57] LABS: Glucose,Whole Blood 157 mg/dL (70-110)
--- NOTE | 2023-08-30 17:05 | P.PN ---
Subjective Progress Note Date: 08/30/23 Principal diagnosis: Acute hypoxic respiratory failure on 5 L oxygen Interstitial pneumonia Chronic atrial fibrillation Hypertension hypertensive cardiovascular disease Obstructive sleep apnea Benign prostatic hypertrophy Chronic insomnia 08/30/2023, patient seen eval reexamined during the rounds labs reviewed medications reviewed computed tomography scan finding reviewed the patient and the family, patient remains short of breath the severity has improved, FiO2 slowly being titrated down, patient is down to 2 lesions is in the, patient remains on broad-spectrum antibiotics IV steroids also on direct oral anticoagulant. Computed tomography scan of the chest without contrast revealed groundglass attenuation. Patient describes presence of bird feeder around the house and presence of several parts around the house as home in the wards 08/29/2023, patient seen eval examined while covering for Dr. Vela, patient sitting upright in the chair still short of breath, on 5 L oxygenpatient is afebrile heart rate 72 blood pressure is 150/70 saturation 93%, patient is a nonsmoker, computed tomography scan of the chest extensive central lobar emphysema with groundglass appearance with large airways no PE seen henson currently on bronchodilators IV steroids and broad-spectrum IV antibiotics with Zosyn and Zithromax. Reviewed data revealed that patient admitted into the hospital with increasing shortness of breath and desaturation which has been progressive for over a year patient underwent septoplasty and turbinoplasty afterwards patient has been hypoxic. Patient has chronic atrial fibrillation on Xarelto Objective - Vital Signs Vital signs: Vital Signs Temp 97.5 F L 08/30/23 12:40 Pulse 90 08/30/23 16:52 Resp 17 08/30/23 12:40 BP 157/73 08/30/23 12:40 Pulse Ox 95 08/30/23 12:40 FiO2 Intake & Output 08/29/23 08/30/23 08/30/23 18:59 06:59 18:59 Intake Total 740 Output Total 700 Balance 40 Intake: Intake, IV Titration 500 Amount Piperacillin-Tazobactam 3 100 .375 gm In Sodium Chloride 0.9% 100 ml @ 25 mls/hr IVPB Q8H [facility] Rx#: [id number] Sodium Chloride 0.9% 1, 400 000 ml @ 50 mls/hr IV . Q20H [facility] Rx#:[id number] Oral 240 Output: Urine 700 Other: Voiding Method Toilet Toilet # Voids 1 1 1 # Bowel Movements 1 1 - Exam - Constitutional General appearance: Present: average body habitus, disheveled - EENT Eyes: Present: EOMI, PERRLA Ears: bilateral: normal - Neck Neck: Present: normal ROM Carotids: bilateral: upstroke normal - Respiratory Respiratory: bilateral: diminished, wheezing - Cardiovascular Rhythm: regular Heart sounds: normal: S1, S2 - Gastrointestinal General gastrointestinal: Present: soft - Integumentary Integumentary: Present: normal - Neurologic Neurologic: Present: CNII-XII intact - Musculoskeletal Musculoskeletal: Present: gait normal, generalized weakness, strength equal bilaterally - Psychiatric Psychiatric: Present: A&O x's 3, intact judgment & insight - Labs CBC & Chem 7: 08/28/23 06:14 08/28/23 06:14 Labs: Abnormal Lab Results - Last 24 Hours (Table) 08/29/23 08/29/23 08/30/23 Range/Units 17:23 20:36 07:23 POC Glucose (mg/dL) 211 H 178 H 162 H (70-110) mg/dL 08/30/23 Range/Units 11:56 POC Glucose (mg/dL) 157 H (70-110) mg/dL Microbiology - Last 24 Hours (Table) 08/28/23 16:00 Gram Stain - Preliminary Sputum Assessment and Plan Assessment: status post recent septoplasty and rhinoplasty Acute hypoxic respiratory failure patient was on on 5 L oxygen, now tapered down to 2 L nasal cannula Interstitial pneumonia now computed tomography scan manifest more of a groundglass appearance, 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 Chronic atrial fibrillation Hypertension hypertensive cardiovascular disease Obstructive sleep apnea Benign prostatic hypertrophy other active problems including Chronic insomnia, hypothyroidism, seasonal ALLERGIES, peptic ulcer disease Plan: continue supplemental oxygen titrated down as tolerated keeping saturation 99% Continue high-dose IV steroids bronchodilator Broad-spectrum antibiotics with Zosyn and Zithromax Direct oral anticoagulant continue Synthroid for hypothyroidism Continue Cozaar and metoprololfor hypertension hypertensive cardiovascular disease continue Protonix for peptic ulcer disease Flomax for BPH Ambien for chronic insomnia Time with Patient: Greater than 30
[2023-08-30 17:09] LABS: Glucose,Whole Blood 222 mg/dL (70-110)
[2023-08-30 20:18] LABS: Glucose,Whole Blood 207 mg/dL (70-110)
[2023-08-31 07:41] LABS: Glucose,Whole Blood 138 mg/dL (70-110)
[2023-08-31 12:10] LABS: Glucose,Whole Blood 124 mg/dL (70-110)
--- NOTE | 2023-08-31 12:57 | P.PN ---
Subjective Progress Note Date: 08/31/23 This is a 78-year-old male patient was admitted to the hospital because of increased dyspnea and hypoxemia. The patient reports recent worsening shortness of breath although he seems to be having trouble breathing for longer periods of time probably a year or so. He underwent a recent turbinoplasty and septoplasty by ENT. Postop, he was noted to be more hypoxic and is pulse ox was dropping considerably. He was also getting short of breath and for that reason he presented to the emergency department. No history of any chronic lung disease. He is a non-smoker although has been exposed to secondhand cigarette smoke. The patient is retired from the [employer]. He has also served in the [employer] for total of 5 years during which she has exposure to asbestos. No exposure to any animals or birds. No exposure to any farming material or products. No intake of any amiodarone as the patient has history of atrial fibrillation and is currently maintained on anticoagulation with Xarelto. No history of any connective tissue disease. No history of vasculitis. The patient has limited cough. Exertional dyspnea. No swelling in lower extremities. No pleurisy. No hemoptysis. The WBC count is at 10.8 with a hemoglobin 11.2 and a platelet count of 243. Normal coagulation profile. Electrolytes are all within normal limits. Sodium levels at 130, BUN 11 with a creatinine of 0.8. proBNP level is 931. The viral screening panel came back negative. UA was negative. The chest x-ray was done and it showed hyperinflation. CAT scan of the chest was abnormal with diffuse bilateral groundglass pulmonary infiltrates scattered throughout the lung gregorio bilaterally. There were few emphysematous bullae. Of significance however was a groundglass appearance of the lungs bilaterally. No evidence of any pulmonary embolism. At this point in time, the patient is on 6 L of O2 nasal cannula with a pulse ox of 93%. No previous CAT scans for comparison. The patient has had previous chest x-rays that does not show any significant abnormalities. CAT scan of the face was also done in the ED and it showed bilateral nasal stents placed which were patent. There was also mild prominence nasal sinus disease most prominent in the ethmoid sinus. Patient has also history of chronic back pain, and previous CAT scan of the lumbar spine that showed multilevel degenerative changes in the lumbar spine greatest at the level of L3-L4. 08/28/2023, the patient is being seen for a follow-up. Feeling better and less short of breath compared to yesterday. Noted the patient was noted to have an interstitial lung disease with diffuse bilateral groundglass pulmonary changes. The procalcitonin level is at 0.04. The JOSE and the JAY JAY screen was negative. However, the patient was noted to have an elevated rheumatoid factor and the level was at 208. He does have chronic arthritic pain involving the upper extremities and he has diffuse body aching. He seems to be less short of breath compared to yesterday. He remains on oxygen 5 L with a pulse ox of 95%. Able to communicate. Coughing up some brownish sputum and sputum sample be collected. The white cell count at 7.4 with a hemoglobin 10.2 and a platelet count of 251. Coagulation profile was essentially within normal limits. UA was negative. Remains on bronchodilators. 08/29/2023, I am seeing the patient for a follow-up. No new complaints. Still requiring oxygen at 5 L with a pulse ox of 97% and we have weaned him down to 4 L. Sitting up in a chair. No significant cough or sputum production. No chest pain. Remains on IV Solu-Medrol. The patient is seen today August 31, 2023 in follow-up on the regular medical floor. He is up ambulating in his room. Awake and alert in no acute distress. Maintaining O2 saturation in the 90s on 2 L/min per nasal cannula. CT scan of the chest revealed no evidence of interstitial thickening, significant groundglass opacities, honeycombing or architectural distortion lungs. No acute areas of infiltrate or consolidative change. There is some mild centrilobular emphysema in the upper lung zones. Glucose 138. C-reactive protein 1.1. He remains on bronchodilators, Solu-Medrol. Anticoagulated with Xarelto. Remains on Zosyn. Objective - Vital Signs Vital signs: Vital Signs Temp 97.6 F 08/31/23 12:07 Pulse 68 08/31/23 12:33 Resp 16 08/31/23 12:07 BP 169/77 08/31/23 12:07 Pulse Ox 90 L 08/31/23 12:07 FiO2 Intake & Output 08/30/23 08/31/23 08/31/23 18:59 06:59 18:59 Intake Total 1100 Output Total 600 Balance 500 Intake: Intake, IV Titration 500 Amount Piperacillin-Tazobactam 3 100 .375 gm In Sodium Chloride 0.9% 100 ml @ 25 mls/hr IVPB Q8H [facility] Rx#: [id number] Sodium Chloride 0.9% 1, 400 000 ml @ 50 mls/hr IV . Q20H [facility] Rx#:[id number] Oral 600 Output: Urine 600 Other: Voiding Method Toilet # Voids 1 1 # Bowel Movements 1 - Exam GENERAL EXAM: Alert, active, pleasant 78-year-old male, on 2 L nasal cannula, comfortable in no apparent distress. HEAD: Normocephalic. EYES: Normal reaction of pupils, equal size. NOSE: Clear with pink turbinates. THROAT: No erythema or exudates. NECK: No masses, no JVD. CHEST: No chest wall deformity. LUNGS: Equal air entry with no crackles, wheeze, rhonchi or dullness. CVS: S1 and S2 normal with no audible murmur, regular rhythm. ABDOMEN: No hepatosplenomegaly, normal bowel sounds, no guarding or rigidity. SPINE: No scoliosis or deformity SKIN: No rashes CENTRAL NERVOUS SYSTEM: No focal deficits, tone is normal in all 4 extremities. EXTREMITIES: There is no peripheral edema. No clubbing, no cyanosis. Peripheral pulses are intact. - Labs CBC & Chem 7: 08/28/23 06:14 08/28/23 06:14 Labs: Abnormal Lab Results - Last 24 Hours (Table) 08/30/23 08/30/23 08/31/23 Range/Units 17:05 20:17 07:40 POC Glucose (mg/dL) 222 H 207 H 138 H (70-110) mg/dL C-Reactive Protein (<1.0) mg/dL 08/31/23 08/31/23 Range/Units 10:37 12:08 POC Glucose (mg/dL) 124 H (70-110) mg/dL C-Reactive Protein 1.1 H (<1.0) mg/dL Microbiology - Last 24 Hours (Table) 08/28/23 16:00 Gram Stain - Final Sputum Sputum Culture - Final Mandy albicans Assessment and Plan Assessment: Acute/subacute hypoxic respiratory failure the patient is currently on 2 L of oxygen by nasal cannula, clinically improving. Diffuse bilateral groundglass pulmonary filtrates exact nature is not clear. Rule out postinfectious bilateral groundglass pulm infiltrates. Rule out underlying chronic lung diseases such as hypersensitivity pneumonitis or eosinophilic pneumonitis. No clear indication for regulated pulmonary toxicity. No history of any cardiomyopathy. No history of CHF. No reported history of aspiration. Idiopathic pneumonias cannot be completely excluded. Patient is a non-smoker. Consider this lung disease as secondary to connective tissue disease, possible rheumatoid arthritis. RF factor was elevated above 200. JOSE and JAY JAY screen was negative. Follow-up high-resolution CT scan of the chest revealed no evidence of interstitial thickening, significant groundglass opacity, honeycombing or architectural distortion lungs. No acute area of infiltrative or consolidative change. There is mild centrilobular emphysema greatest in the upper lung zones. Chronic A-fib, anticoagulation with Eliquis Hypertension Obstructive sleep apnea maintained on CPAP therapy History of difficulty breathing through nose and the patient has undergone septoplasty and tympanoplasty and the patient has some nasal stents bilaterally inserted by ENT Chronic degenerative disc disease Chronic insomnia BPH Plan: The patient was seen and evaluated CT scan of the chest, labs and medications reviewed Obtain a C-reactive protein, CCP, sed rate Obtain a hypersensitivity pneumonia panel Titrate down the FiO2 as tolerated We will continue to follow I have personally seen and examined the patient, performed the documentation and the assessment and plan as written. Number of minutes spent on the visit: 10.
[2023-08-31 14:49] LABS: C-ANCA <1:20 Titer (<1:20)
[2023-08-31 17:06] LABS: Glucose,Whole Blood 156 mg/dL (70-110)
[2023-08-31] MEDS: LOSARTAN-HCTZ 50-12.5 MG 1 EACH TAB PO SCH ×2 (17:20→17:25)
--- NOTE | 2023-08-31 20:59 | PN ---
PROGRESS NOTE SUBJECTIVE: A 78-year-old white male came in with hypoxemic respiratory distress. He had a CAT scan that showed interstitial thickness, ground-glass opacities, mild circumferential thickening. He is slowly improving with his breathing, still requiring 5 L oxygen, 97%. Wean him down to 4 L in a chair. He is on IV steroids. Mild emphysema. OBJECTIVE: VITAL SIGNS: Temp 97.6, pulse 68, blood pressure 169/77, O2 still 90%. LUNGS: Scattered rhonchi and wheeze. CARDIOVASCULAR: S1, S2. ABDOMEN: Soft. LABORATORY DATA: Hemoglobin is 10.2, white count 7.48. Sodium 132, potassium 4.5. ASSESSMENT: Acute subacute hypoxemic respiratory failure, currently on 2 L oxygen, slowly improving. Diffuse bilateral ground-glass pulmonary infiltrates, unclear etiology. He has possible hypersensitivity pneumonitis from a vitamin exposure versus esophageal pneumonitis, he want to rule out rheumatoid arthritis on him. Rheumatoid factor was elevated above 200. JOSE and JAY JAY were negative. Chronic atrial fibrillation, on Eliquis. Continue with hypertension control. Chronic degenerative disk disease, insomnia, BPH, hypersensitivity pneumonia, pale, titrate FiO2. CRP, C-reactive protein, all ordered. ENT underwent septoplasty with tympanoplasty. The patient has had some nasal stents inserted by ENT. Wait for ENT to see him. MMODL / IJN: [id number] /
[2023-08-31 21:12] LABS: Glucose,Whole Blood 204 mg/dL (70-110)
[2023-08-31 23:00] LABS: Cyclic Citrull Pep IgG Unit 6.7 U/mL (<=3.9); Cyclic Citrullinated Pep IgG Positive (Negative)
[2023-09-01 07:39] LABS: Glucose,Whole Blood 141 mg/dL (70-110)
[2023-09-01 08:04] VITALS: RESP 19
[2023-09-01] MEDS: predniSONE 20 MG TAB PO SCH (08:54)
[2023-09-01 10:36] LABS: Basophils # (A) 0.01 X 10*3/uL (0.00-0.10); Basophils % (A) 0.2 %; Eosinophils # (A) 0 X 10*3/uL (0.04-0.35); Eosinophils % (A) 0 %; HCT 33.4 % (39.6-50.0); HGB 10.9 g/dL (13.0-17.0); Lymphocytes # (A) 0.69 X 10*3/uL (0.90-5.00); Lymphocytes % (A) 11.5 %; MCHC 32.6 g/dL (32.0-37.0); MCV 88.8 FL (80.0-97.0); Mean Platelet Volume 10.4 FL (9.5-12.2); Monocytes # (A) 0.32 X 10*3/uL (0.20-1.00); Monocytes % (A) 5.3 %; NRBC Per 100 WBC 0 X 10*3/uL (0.00-0.01); Neutrophils % (A) 81.8 %; Platelet Count 329 X 10*3/uL (140-440); RBC 3.76 X 10*6/uL (4.40-5.60); RDW 15.1 % (11.5-14.5); WBC 5.99 X 10*3/uL (4.50-10.00)
[2023-09-01 11:12] LABS: ALT 48 U/L (10-49); AST 27 U/L (14-35); Albumin/Globulin Ratio 1.14 Ratio (1.60-3.17); Alkaline Phosphatase 61 U/L (41-126); Blood Urea Nitrogen 19.6 mg/dL (9.0-27.0); Calcium 9.2 mg/dL (8.7-10.3); Carbon Dioxide 24.9 mmol/L (21.6-31.8); Chloride 96 mmol/L (96-109); Globulin 3.5 g/dL (1.6-3.3); Glucose 163 mg/dL (70-110); Potassium 4.3 mmol/L (3.5-5.5); Sodium 132 mmol/L (135-145); Total Bilirubin 0.7 mg/dL (0.3-1.2); Total Protein 7.5 g/dL (6.2-8.2)
[2023-09-01 12:09] LABS: Glucose,Whole Blood 155 mg/dL (70-110)
[2023-09-01 13:34] VITALS: BP 166/70; PULSE 59; TEMP 97.9
--- NOTE | 2023-09-01 13:57 | P.PN ---
Subjective Progress Note Date: 09/01/23 This is a 78-year-old male patient was admitted to the hospital because of increased dyspnea and hypoxemia. The patient reports recent worsening shortness of breath although he seems to be having trouble breathing for longer periods of time probably a year or so. He underwent a recent turbinoplasty and septoplasty by ENT. Postop, he was noted to be more hypoxic and is pulse ox was dropping considerably. He was also getting short of breath and for that reason he presented to the emergency department. No history of any chronic lung disease. He is a non-smoker although has been exposed to secondhand cigarette smoke. The patient is retired from the [employer]. He has also served in the [employer] for total of 5 years during which she has exposure to asbestos. No exposure to any animals or birds. No exposure to any farming material or products. No intake of any amiodarone as the patient has history of atrial fibrillation and is currently maintained on anticoagulation with Xarelto. No history of any connective tissue disease. No history of vasculitis. The patient has limited cough. Exertional dyspnea. No swelling in lower extremities. No pleurisy. No hemoptysis. The WBC count is at 10.8 with a hemoglobin 11.2 and a platelet count of 243. Normal coagulation profile. Electrolytes are all within normal limits. Sodium levels at 130, BUN 11 with a creatinine of 0.8. proBNP level is 931. The viral screening panel came back negative. UA was negative. The chest x-ray was done and it showed hyperinflation. CAT scan of the chest was abnormal with diffuse bilateral groundglass pulmonary infiltrates scattered throughout the lung gregroio bilaterally. There were few emphysematous bullae. Of significance however was a groundglass appearance of the lungs bilaterally. No evidence of any pulmonary embolism. At this point in time, the patient is on 6 L of O2 nasal cannula with a pulse ox of 93%. No previous CAT scans for comparison. The patient has had previous chest x-rays that does not show any significant abnormalities. CAT scan of the face was also done in the ED and it showed bilateral nasal stents placed which were patent. There was also mild prominence nasal sinus disease most prominent in the ethmoid sinus. Patient has also history of chronic back pain, and previous CAT scan of the lumbar spine that showed multilevel degenerative changes in the lumbar spine greatest at the level of L3-L4. 08/28/2023, the patient is being seen for a follow-up. Feeling better and less short of breath compared to yesterday. Noted the patient was noted to have an interstitial lung disease with diffuse bilateral groundglass pulmonary changes. The procalcitonin level is at 0.04. The JOSE and the JAY JAY screen was negative. However, the patient was noted to have an elevated rheumatoid factor and the level was at 208. He does have chronic arthritic pain involving the upper extremities and he has diffuse body aching. He seems to be less short of breath compared to yesterday. He remains on oxygen 5 L with a pulse ox of 95%. Able to communicate. Coughing up some brownish sputum and sputum sample be collected. The white cell count at 7.4 with a hemoglobin 10.2 and a platelet count of 251. Coagulation profile was essentially within normal limits. UA was negative. Remains on bronchodilators. 08/29/2023, I am seeing the patient for a follow-up. No new complaints. Still requiring oxygen at 5 L with a pulse ox of 97% and we have weaned him down to 4 L. Sitting up in a chair. No significant cough or sputum production. No chest pain. Remains on IV Solu-Medrol. The patient is seen today August 31, 2023 in follow-up on the regular medical floor. He is up ambulating in his room. Awake and alert in no acute distress. Maintaining O2 saturation in the 90s on 2 L/min per nasal cannula. CT scan of the chest revealed no evidence of interstitial thickening, significant groundglass opacities, honeycombing or architectural distortion lungs. No acute areas of infiltrate or consolidative change. There is some mild centrilobular emphysema in the upper lung zones. Glucose 138. C-reactive protein 1.1. He remains on bronchodilators, Solu-Medrol. Anticoagulated with Xarelto. Remains on Zosyn. The patient is seen today September 01, 2023 in follow-up on the regular medical floor. He is currently sitting up in a chair at the bedside. Awake and alert in no acute distress. He is stating he is feeling 100% better. He is maintaining good O2 saturations in the 90s on room air. Lung sounds are clear. He is suspected to have rheumatoid arthritis. His CCP IgG was 6.7 and the cyclic Citrulline peptide was positive, his ESR is 38 C-reactive protein 1.1. White count 5.9. Hemoglobin 10.9. Platelets 329. Sodium 132. Potassium 4.3. Bicarb 25. BUN 20. Creatinine 1.0. Glucose 163. He remains on DuoNeb ventilations, Solu-Medrol, Zosyn. Anticoagulated with Xarelto. Objective - Vital Signs Vital signs: Vital Signs Temp 97.9 F 09/01/23 13:09 Pulse 59 L 09/01/23 13:09 Resp 19 09/01/23 13:09 BP 166/70 09/01/23 13:09 Pulse Ox 94 L 09/01/23 13:09 FiO2 Intake & Output 08/31/23 09/01/23 09/01/23 18:59 06:59 18:59 Intake Total 700 240 Output Total 825 Balance 700 -825 240 Intake: Intake, IV Titration 700 Amount Piperacillin-Tazobactam 3 100 .375 gm In Sodium Chloride 0.9% 100 ml @ 25 mls/hr IVPB Q8H [facility] Rx#: [id number] Sodium Chloride 0.9% 1, 600 000 ml @ 50 mls/hr IV . Q20H [facility] Rx#:[id number] Oral 240 Output: Urine 825 Other: Voiding Method Toilet - Exam GENERAL EXAM: Alert, pleasant 78-year-old male, on room air, comfortable in no apparent distress. HEAD: Normocephalic. EYES: Normal reaction of pupils, equal size. NOSE: Clear with pink turbinates. THROAT: No erythema or exudates. NECK: No masses, no JVD. CHEST: No chest wall deformity. LUNGS: Equal air entry with no crackles, wheeze, rhonchi or dullness. CVS: S1 and S2 normal with no audible murmur, regular rhythm. ABDOMEN: No hepatosplenomegaly, normal bowel sounds, no guarding or rigidity. SPINE: No scoliosis or deformity SKIN: No rashes CENTRAL NERVOUS SYSTEM: No focal deficits, tone is normal in all 4 extremities. EXTREMITIES: There is no peripheral edema. No clubbing, no cyanosis. Peripheral pulses are intact. - Labs CBC & Chem 7: 09/01/23 07:15 09/01/23 07:15 Labs: Abnormal Lab Results - Last 24 Hours (Table) 05/08/31/23 08/31/23 Range/Units 10:37 10:37 17:05 RBC (4.40-5.60) X 10*6/uL Hgb (13.0-17.0) g/dL Hct (39.6-50.0) % RDW (11.5-14.5) % Immature Gran # (0.00-0.04) X 10*3/uL Lymphocytes # (0.90-5.00) X 10*3/uL Eosinophils # (0.04-0.35) X 10*3/uL ESR 38 H (0-20) mm/Hr Sodium (135-145) mmol/L Glucose (70-110) mg/dL POC Glucose (mg/dL) 156 H (70-110) mg/dL Globulin (1.6-3.3) g/dL Albumin/Globulin Ratio (1.60-3.17) Ratio Cycl Citrul Peptide IgG 6.7 H (<=3.9) U/mL Cyclic Citrull Peptide Positive A (Negative) 08/31/23 09/01/23 09/01/23 Range/Units 21:08 07:15 07:15 RBC 3.76 L (4.40-5.60) X 10*6/uL Hgb 10.9 L (13.0-17.0) g/dL Hct 33.4 L (39.6-50.0) % RDW 15.1 H (11.5-14.5) % Immature Gran # 0.07 H (0.00-0.04) X 10*3/uL Lymphocytes # 0.69 L (0.90-5.00) X 10*3/uL Eosinophils # 0 L (0.04-0.35) X 10*3/uL ESR (0-20) mm/Hr Sodium 132 L (135-145) mmol/L Glucose 163 H (70-110) mg/dL POC Glucose (mg/dL) 204 H (70-110) mg/dL Globulin 3.5 H (1.6-3.3) g/dL Albumin/Globulin Ratio 1.14 L (1.60-3.17) Ratio Cycl Citrul Peptide IgG (<=3.9) U/mL Cyclic Citrull Peptide (Negative) 05/29/24 05/29/24 Range/Units 07:37 12:04 RBC (4.40-5.60) X 10*6/uL Hgb (13.0-17.0) g/dL Hct (39.6-50.0) % RDW (11.5-14.5) % Immature Gran # (0.00-0.04) X 10*3/uL Lymphocytes # (0.90-5.00) X 10*3/uL Eosinophils # (0.04-0.35) X 10*3/uL ESR (0-20) mm/Hr Sodium (135-145) mmol/L Glucose (70-110) mg/dL POC Glucose (mg/dL) 141 H 155 H (70-110) mg/dL Globulin (1.6-3.3) g/dL Albumin/Globulin Ratio (1.60-3.17) Ratio Cycl Citrul Peptide IgG (<=3.9) U/mL Cyclic Citrull Peptide (Negative) Assessment and Plan Assessment: Acute/subacute hypoxic respiratory failure, recovered and on room air Diffuse bilateral groundglass pulmonary filtrates exact nature is not clear. Suspect rheumatoid lung as the patient is now suspected of having rheumatoid arthritis. RF factor was elevated at 208. ESR 38. C-reactive protein 1.1. Cyclic Citrullinated peptide IgG 6.7 and Cyclic Citrullinated Peptide was positive. Follow-up high-resolution CT scan of the chest revealed no evidence of interstitial thickening, significant groundglass opacity, honeycombing or architectural distortion lungs. No acute area of infiltrative or consolidative change. There is mild centrilobular emphysema greatest in the upper lung zones. Suspected rheumatoid arthritis, to be followed up in the outpatient setting Chronic A-fib, anticoagulation with Eliquis Hypertension Obstructive sleep apnea maintained on CPAP therapy History of difficulty breathing through nose and the patient has undergone septoplasty and tympanoplasty and the patient has some nasal stents bilaterally inserted by ENT Chronic degenerative disc disease Chronic insomnia BPH Plan: The patient was seen and evaluated Labs and medications reviewed Suspected rheumatoid arthritis To see a reverse logistics analyst in the outpatient setting Stable and on room air Cleared for discharge from the pulmonary standpoint Follow-up in our office in 1 week I have personally seen and examined the patient, performed the documentation and the assessment and plan as written. Number of minutes spent on the visit: 10.
[2023-09-01] MEDS ORDERED: CEFDINIR 300 MG CAP PO SCH (21:00)
[2023-09-02] MEDS ORDERED: methylPREDNISolone 4 MG TAB TAPER PO SCH (09:00)
== END 2023-09-01 15:57 | disposition home or self-care (01) | DRG 196 ==
LOC: EC 08:53 → 5NMEDONC 12:29
PROVIDERS: ADMIT Family Medicine; ATTEND Family Medicine
DX: M05.10 Rheumatoid lung disease with rheumatoid arthritis of unspecified site (principal); J96.01 Acute respiratory failure with hypoxia; I48.20 Chronic atrial fibrillation, unspecified; E83.42 Hypomagnesemia; K21.9 Gastro-esophageal reflux disease without esophagitis; N40.0 Benign prostatic hyperplasia without lower urinary tract symptoms; I11.9 Hypertensive heart disease without heart failure; F51.04 Psychophysiologic insomnia; G47.33 Obstructive sleep apnea (adult) (pediatric); M51.36 Other intervertebral disc degeneration, lumbar region; K27.9 Peptic ulcer, site unspecified, unspecified as acute or chronic, without hemorrhage or perforation; J43.2 Centrilobular emphysema; E89.0 Postprocedural hypothyroidism; J34.2 Deviated nasal septum; Z77.22 Contact with and (suspected) exposure to environmental tobacco smoke (acute) (chronic); Z77.090 Contact with and (suspected) exposure to asbestos; Z79.01 Long term (current) use of anticoagulants; Z79.899 Other long term (current) drug therapy; Z79.890 Hormone replacement therapy
CPT/HCPCS: 36415; 70487; 71045; 71250; 71275; 80053; 81003; 82164; 82803; 83036; 83605; 83735; 83880; 84145; 85025; 85610; 85652; 85730; 86001; 86038; 86140; 86200; 86235; 86255; 86431; 86606; 86609; 87070; 87205; 87449; 87636; 93005; 93306; 94640; 94760; 96361; 96374; 99291

== ENCOUNTER → 2024-06-19 | Outpatient (CLI) | payer MEDICARE, BC ==
[2024-06-19 17:09] LABS: Total Eosinophil Count 351 #EOS/uL (150-300)
[2024-06-19 20:45] LABS: Erythrocyte Sedimentation Rate 64 mm/Hr (0-20)
[2024-06-19 21:01] LABS: C Reactive Protein 0.8 mg/dL (0.00-0.80)
[2024-06-19 21:09] LABS: Immunoglobulin E 5.38 IU/mL (0.00-114.00)
[2024-06-19 21:56] LABS: Anti-Smith Ab Interp Negative (Negative)
== END | disposition home or self-care (01) ==
LOC: LABWHC1 16:22
PROVIDERS: ATTEND Internal Medicine Critical Care Medicine
DX: M06.9 Rheumatoid arthritis, unspecified (principal)
CPT/HCPCS: 36415; 82785; 85008; 85652; 86038; 86140; 86235; 86431